=== PATIENT | female | born 1965 | race Caucasian/White ===

== ENCOUNTER 2017-08-10 08:21 | Emergency (ER) | payer BC ==
[~2017-08-10] VITALS: Ht 167.6 cm; Wt 80.7 kg
[~2017-08-10 08:21] MED LIST: TOPROL XL25 MG PO
--- NOTE | 2017-08-10 09:15 | Diagnostic Imaging Report ---
PROCEDURE:X-RAY RIGHT ANKLE, COMPLETE INDICATION:Status post fall COMPARISON:None. FINDINGS:The ankle mortise is intact. No fracture or dislocation. Minimal soft tissue swelling adjacent to the lateral malleolus. CONCLUSION:No acute bony abnormality. Teja Vela D.O. Dictated by: Teja Vela D.O. on 08/10/2017 at 9:16 Electronically approved by: Teja Vela D.O. on 08/10/2017 at 9:16
== END 2017-08-10 09:42 | disposition home or self-care (01) ==
LOC: ER 08:21
CPT/HCPCS: 99283

== ENCOUNTER 2018-03-07 16:13 | Inpatient (IN) | payer BC ==
[~2018-03-07] VITALS: Ht 165.1 cm; Wt 83.1 kg
--- OUTSIDE RECORDS SUMMARY | 2018-03-07 16:15 | XMS REPORT ---
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 Allergies, Adverse Reactions, Alerts This patient has no known allergies or adverse reactions. Medications This patient has no known medications. Results Test Description Test Time Test Comments Text Results Atomic Results Result Comments ANKLE 3 + VIEWS RIGHT [place] [address] Patient Name: SAUNDRA GIL MR #: [id number] : 1965 Age/Sex: 52/F Req #: [id number] [facility] Physician: Ordered by: SAIDA ESCOBEDO MD Report #: [id number] Location: ER Room/Bed: Procedure: [id number] DX/ANKLE 3 + VIEWS RIGHT Exam Date: 08/10/17 Exam Time: 0845 REPORT STATUS: Signed PROCEDURE: X-RAY RIGHT ANKLE, COMPLETE INDICATION: Status post fall COMPARISON: None. FINDINGS: The ankle mortise is intact. No fracture or dislocation. Minimal soft tissue swelling adjacent to the lateral malleolus. CONCLUSION: No acute bony abnormality. Frantz Nielsen D.O. Dictated by: Frantz Nielsen D.O. on 08/10/2017 at 9:16 Electronically approved by: Frantz Nielsen D.O. on 08/10/2017 at 9:16 Dictated By: FRANTZ NIELSEN DO 6 Transcribed By: DEMETRICE on 08/10/17916 COPY TO: SAIDA ESCOBEDO MD
[2018-03-07] MEDS ORDERED: ONDANSETRON HCL INJ 2 MG/ML VIAL IV STA (16:22)
[2018-03-07] MEDS ORDERED: KETOROLAC TROMETHAMINE 30 MG/ML VIAL IV STA (16:22)
--- NOTE | 2018-03-07 19:08 | Diagnostic Imaging Report ---
EXAM: CT Abdomen and Pelvis WITHOUT and WITH contrast INDICATION: Left lower quadrant pain, history of diverticulosis, renal stones, hematuria COMPARISON: CT abdomen and pelvis 11/07/2016 TECHNIQUE: Abdomen and pelvis were scanned utilizing a multidetector helical scanner from the lung base to the pubic symphysis before and after administration of IV contrast. Coronal and sagittal reformations were obtained. Routine protocol was performed. IV CONTRAST: None. ORAL CONTRAST: Water RADIATION DOSE: Total DLP: 1439 mGy*cm Estimated effective dose: (DLP x 0.015 x size factor) mSv COMPLICATIONS: None FINDINGS: LINES and TUBES: None. LOWER THORAX: Unremarkable HEPATOBILIARY: No focal hepatic lesions. No biliary ductal dilation. GALLBLADDER: No radio-opaque stones or sludge. No wall thickening. SPLEEN: No splenomegaly. PANCREAS: No focal masses or ductal dilatation. ADRENALS: No adrenal nodules KIDNEYS/URETERS: No hydronephrosis. No cystic or solid mass lesions. 3 mm nonobstructing calcified stone in the inferior pole of the right kidney on series 2, image 43. GI TRACT: No abnormal distention, wall thickening, or evidence of bowel obstruction. Diffuse diverticulosis throughout the sigmoid colon with associated extensive fat stranding and mild fluid collection within the distal sigmoid in the pelvis on series 2, image 72. No free air. Scattered diverticulosis throughout the remaining colon. Appendix is normal. PELVIC ORGANS/BLADDER: Unremarkable. LYMPH NODES: No lymphadenopathy. VESSELS: Unremarkable. PERITONEUM / RETROPERITONEUM: No free air or fluid. BONES: Unremarkable. SOFT TISSUES: Unremarkable. IMPRESSION: 1. Acute severe diverticulitis of the sigmoid colon. No abscess or free air in the pelvis. Recommend follow-up after treatment is completed. 2. Nonobstructing right nephrolithiasis. Signed by: Dr. Clarissa Abel M.D. on 03/07/2018 7:04 PM
[2018-03-07] MEDS ORDERED: IOPAMIDOL 370 MG/ML 50ML INFUS..BTL INJ ONE (19:45)
[2018-03-07 20:22] VITALS: BP 130/64
[2018-03-07] MEDS: SODIUM CHLORIDE 0.9% 1000ML 1,000 ML IV SCH (20:45)
[2018-03-07] MEDS: METRONIDAZOLE 500MG/NS 100ML 100 ML IV SCH (20:46)
[2018-03-07 21:00] VITALS: BP 130/64
[2018-03-07] MEDS: LEVOFLOXACIN 500MG/D5W 100ML 100 ML IV SCH (21:30)
[2018-03-08] VITALS (9 sets, daily range): BP systolic 97–130; BP diastolic 52–78
[2018-03-08 06:03] LABS: BASOPHILS % 0.3 % (0.0-1.0); EOSINOPHILS # (AUTO) 0.1 (0.0-0.4); HEMOGLOBIN 12.5 g/dL (12.0-16.0); LYMPHOCYTES # (AUTO) 1.4 (1.0-3.2); LYMPHOCYTES % 12.7 % (18.0-39.1); MEAN CORPUSCULAR HEMOGLOBIN 29.6 pg (28-32); MEAN CORPUSCULAR HGB CONC 32.9 g/dL (31-35); MONOCYTES # (AUTO) 1.1 (0.2-0.8); MONOCYTES % 9.4 % (4.4-11.3); NEUTROPHILS # (AUTO) 8.6 (2.1-6.9); NEUTROPHILS % 76.2 % (38.7-80.0); PLATELET COUNT 245 x10e3/uL (140-360); RED BLOOD COUNT 4.22 x10e6/uL (3.6-5.1); RED CELL DISTRIBUTION WIDTH 13.4 % (11.7-14.4)
[2018-03-08] MEDS ORDERED: ONDANSETRON HCL INJ 2 MG/ML VIAL IV PRN (06:15)
[2018-03-08] MEDS ORDERED: KETOROLAC TROMETHAMINE 30 MG/ML VIAL IV PRN (06:15)
[2018-03-08] MEDS ORDERED: KETOROLAC TROMETHAMINE 30 MG/ML VIAL IM PRN (06:15)
[2018-03-08 06:32] LABS: ALANINE AMINOTRANSFERASE 18 IU/L (0-55); ALKALINE PHOSPHATASE 48 IU/L (40-150); ANION GAP 11.7 mmol/L (8-16); BLOOD UREA NITROGEN 8 mg/dL (7-26); BUN/CREATININE RATIO 11 (6-25); CALCIUM 8.1 mg/dL (8.4-10.2); CARBON DIOXIDE 20 mmol/L (22-29); CHLORIDE 111 mmol/L (98-107); CREATININE, SERUM 0.76 mg/dL (0.57-1.11); EST GLOMERULAR FILTRATION RATE > 60 ML/MIN (60-); GLUCOSE 99 mg/dL (74-118); POTASSIUM 3.7 mmol/L (3.5-5.1); SODIUM 139 mmol/L (136-145)
[2018-03-08] MEDS: SODIUM CHLORIDE 0.9% 1000ML 1,000 ML IV SCH ×3 (06:58→19:00)
[2018-03-08] MEDS: METRONIDAZOLE 500MG/NS 100ML 100 ML IV SCH ×2 (09:00→20:14)
[2018-03-08] MEDS: LEVOFLOXACIN 500MG/D5W 100ML 100 ML IV SCH (21:26)
[2018-03-09] MEDS ORDERED: METRONIDAZOLE 500MG/NS 100ML 100 ML IV SCH
[2018-03-09] MEDS: METRONIDAZOLE 500MG/NS 100ML 100 ML IV SCH ×4 (02:12→20:45)
[2018-03-09 05:30] VITALS: BP 131/66
[2018-03-09 08:26] VITALS: BP 133/68
[2018-03-09 09:49] LABS: BASOPHILS % 0.3 % (0.0-1.0); EOSINOPHILS # (AUTO) 0.1 (0.0-0.4); EOSINOPHILS % 1.5 % (0.0-6.0); HEMATOCRIT 35.8 % (34.2-44.1); HEMOGLOBIN 11.9 g/dL (12.0-16.0); LYMPHOCYTES # (AUTO) 1.2 (1.0-3.2); LYMPHOCYTES % 18.2 % (18.0-39.1); MEAN CORPUSCULAR HGB CONC 33.2 g/dL (31-35); MEAN CORPUSCULAR VOLUME 90.2 fL (81-99); MONOCYTES # (AUTO) 0.4 (0.2-0.8); MONOCYTES % 6.1 % (4.4-11.3); NEUTROPHILS % 73.6 % (38.7-80.0); PLATELET COUNT 262 x10e3/uL (140-360); RED BLOOD COUNT 3.97 x10e6/uL (3.6-5.1)
[2018-03-09 10:13] LABS: ANION GAP 11.6 mmol/L (8-16); BLOOD UREA NITROGEN 8 mg/dL (7-26); BUN/CREATININE RATIO 11 (6-25); CALCIUM 8.1 mg/dL (8.4-10.2); CARBON DIOXIDE 19 mmol/L (22-29); CHLORIDE 109 mmol/L (98-107); CREATININE, SERUM 0.73 mg/dL (0.57-1.11); EST GLOMERULAR FILTRATION RATE > 60 ML/MIN (60-); GLUCOSE 153 mg/dL (74-118); POTASSIUM 3.6 mmol/L (3.5-5.1); SODIUM 136 mmol/L (136-145)
[2018-03-09 11:51] VITALS: BP 116/67
[2018-03-09 15:48] VITALS: BP 128/66
[2018-03-09 20:00] VITALS: BP 123/68
[2018-03-09] MEDS: LEVOFLOXACIN 500MG/D5W 100ML 100 ML IV SCH (23:45)
[2018-03-10] VITALS: BP 146/78
[2018-03-10] MEDS: METRONIDAZOLE 500MG/NS 100ML 100 ML IV SCH ×4 (02:45→20:14)
[2018-03-10 05:45] VITALS: BP 111/56
[2018-03-10 08:22] VITALS: BP 140/74
[2018-03-10 12:24] VITALS: BP 125/74
[2018-03-10 16:17] VITALS: BP 114/59
[2018-03-10 21:00] VITALS: BP 135/71
[2018-03-10] MEDS: LEVOFLOXACIN 500MG/D5W 100ML 100 ML IV SCH (21:16)
[2018-03-11 01:08] VITALS: BP 137/96
[2018-03-11] MEDS: METRONIDAZOLE 500MG/NS 100ML 100 ML IV SCH ×2 (02:07→08:24)
[2018-03-11 06:33] VITALS: BP 113/60
[2018-03-11 07:30] VITALS: BP 124/86
[2018-03-11] MEDS ORDERED: PANTOPRAZOLE SOD 40 MG TABEC PO SCH (07:30)
[2018-03-11 08:00] VITALS: BP 124/86
== END 2018-03-11 08:37 | disposition home or self-care (01) | DRG 392 ==
LOC: FSED 16:13 → OBSVTOIN 19:10 → INTOOBSV 19:10 → ERHOLD 19:10 → MED/SURG2 20:24
PROVIDERS: ADMIT Internal Medicine; ATTEND Internal Medicine
DX: K57.32 Diverticulitis of large intestine without perforation or abscess without bleeding (principal); D64.9 Anemia, unspecified
CPT/HCPCS: 36415; 74170; 80048; 80053; 81003; 81025; 83735; 85025; 87493; 99284; J1885; J1956; J2405; J7030; Q9967

== ENCOUNTER 2018-07-16 20:55 | Observation (INO) | payer BC ==
[~2018-07-16] VITALS: Ht 167.6 cm; Wt 81.6 kg
[2018-07-16] MEDS ORDERED: HYDRALAZINE HCL 20 MG/ML VIAL IV ONE ×2 (21:30→22:30)
[2018-07-16] MEDS ORDERED: ASPIRIN 325 MG TAB PO ONE (21:30)
--- NOTE | 2018-07-16 22:00 | Diagnostic Imaging Report ---
EXAMINATION: CXR 2 VIEW - HOPD INDICATION: Chest pain COMPARISON: None FINDINGS: PA and lateral views TUBES and LINES: None. LUNGS: Lungs are well inflated. There is no evidence of pneumonia or pulmonary edema. PLEURA: No pleural effusion or pneumothorax. HEART AND MEDIASTINUM: The cardiomediastinal silhouette is unremarkable.. BONES AND SOFT TISSUES: No focal osseous lesions. Soft tissues are unremarkable. UPPER ABDOMEN: No free air under the diaphragm. IMPRESSION: No acute thoracic abnormality. Signed by: Dr. Ana Tarango MD on 07/16/2018 9:57 PM
--- NOTE | 2018-07-16 22:45 | NUR ---
PATIENT CRYING STATING SHE FEELS SOB, LIKE SHES HAVING TO TAKE DEEPER BREATHS, DENIES WANTING TO BE PLACED ON OXYGEN, BP READING IS NOT 211/97
--- NOTE | 2018-07-16 22:56 | NUR ---
PER PATIENT AFTER FIRST DOSE OF HYDRALIZE SHE DID HAVE AN EPISODE OF PAIN THAT RADIATED TO BACK FROM FRONT OF CHEST, AFTER ADDITIONAL DOSE OF HYDRALIZNE GIVEN IT MADE SYMPTOMS WORSE WHICH INCLUDED SHORTNESS OF BREATH THAT REQUIRED HER TO TAKE DEEPER BREATHS, NOW PT IS CALM AND BP HAS DECREASED AT INITIAL START OF POSSIBLE ADVERSE SYMPTOMS BP WAS 211/97 HR 128, CURRENTLY BP 186/68 HR 113, WILL CONT TO MONITOR PT AND AWAITING APPROVAL FOR TRANSFER TO [facility]
[2018-07-16] MEDS ORDERED: LABETALOL HCL 5 MG/ML 20ML VIAL IV PRN (23:15)
[2018-07-17] VITALS (8 sets, daily range): BP systolic 110–176; BP diastolic 58–107
[2018-07-17] MEDS ORDERED: CLONIDINE HCL 0.1 MG TAB PO PRN (02:45)
--- NOTE | 2018-07-17 04:04 | History and Physical ---
REASON FOR ADMISSION: 1. Chest pain, rule out VA. 2. Hypertensive urgency. HISTORY OF PRESENT ILLNESS: The patient is a 53-year-old lady, who presented with chest pain, midsternal, that came on the time that she started having hypertensive urgency with systolic blood pressure near 200s and diastolics 110s where she was given some medication leaving blood pressure now where she is currently at around 160 with no chest pain at this time, so she was admitted for further evaluation. The patient states that she has had a history of hypertension in the past, but it has mostly been diet-controlled and doing well recently until yesterday prior to admission. PAST MEDICAL HISTORY: Hypertension, but diet-controlled. MEDICATIONS: See MAY. ALLERGIES: NONE. SOCIAL HISTORY: Nondrinker and nonsmoker. FAMILY HISTORY: Hypertension. PHYSICAL EXAMINATION: VITAL SIGNS: Temperature 98.6, pulse 74, blood pressure 156/84, respiratory rate 14, and sats 97%. GENERAL: She is in no apparent distress. NECK: Supple. No lymphadenopathy. No JVD. CARDIOVASCULAR: Regular rate and rhythm. LUNGS: Clear to auscultation bilaterally. ABDOMEN: Good bowel sounds. Soft, nontender. EXTREMITIES: No clubbing, cyanosis. NEUROLOGIC: Nonfocal. ASSESSMENT/PLAN: 1. Chest pain, rule out myocardial infarction. Consult with Cardiology, Dr. Nicole. 2. Hypertension. We will continue with current p.r.n. medications at this time, since she does not really want to be on put on any maintenance medicine if possible. Please see hospital chart for full details. MD DANG Bateman/VIJAY /[id number]
[2018-07-17 08:40] LABS: CREATINE KINASE MB 1.4 ng/mL (0-5.0)
[2018-07-17] MEDS ORDERED: ASPIRIN 325 MG TAB EC PO SCH (09:00)
[2018-07-17 09:11] LABS: CHOL/HDL RATIO 3.2 (3.0-3.6)
--- NOTE | 2018-07-17 14:20 | Consultation ---
DATE OF CONSULTATION: 07/17/2018 Cardiology Consultation CONSULTING PHYSICIAN: Tomy Nicole MD, Interventional Cardiology. REASON FOR CONSULTATION: Chest pain. 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 She has a family history significant for coronary artery disease and presents for episodes of chest discomfort occurring while at work, described as left sided, pressure like, lasting less than 5 minutes at a time, occurring at rest, but also after walking to restroom, particularly more pronounced when her blood pressure is in the 140s to 160s and increased after receiving hydralazine and heart rate resulting increase into the 120s per her description. Previous evaluations in the past have revealed known right bundle-branch block, symptomatic improvement with p.r.n. clonidine in the past, and workup has included SPECT stress test at that time reassuring. In telemetry, she remains in sinus rhythm with sinus tachycardia, no arrhythmias documented so far and cardiac biomarkers have again ruled her out for AMI with serial enzymes. She feels overall somewhat better today compared to yesterday. Echocardiogram has been ordered and is pending. She has noted occasional associated palpitations, however, this do not seem to present along with every episode of chest pain that she has reported. Chest discomfort is unaffected by changes in position from lying to sitting as well as with meals and is not reliably occurring with exertion. Sometimes she does note chest discomfort worsens with deep inspiration or cough. REVIEW OF SYSTEMS: A 12-system review is negative except for as noted above. PAST MEDICAL HISTORY: Episodic hypertensive episodes for which she has not continued or received treatment on a regular basis. SOCIAL HISTORY: Occasional alcohol use. No smoking. No drugs. FAMILY HISTORY: Significant for CAD in various family members including parents. PHYSICAL EXAMINATION: VITAL SIGNS: Temperature 97.9, heart rate 86, respiratory rate 16, blood pressure 133/96, and O2 saturation 98% on room air. GENERAL: In no acute distress, alert. NECK: No JVD. No carotid bruit. CHEST: Clear to auscultation. CARDIOVASCULAR: Regular rate and rhythm. Normal S1 and S2. No S3, no S4. No murmurs, no rubs. ABDOMEN: Soft, nontender, nondistended. EXTREMITIES: No cyanosis, clubbing, or edema. Warm distal extremities. CARDIOVASCULAR MEDICATIONS: Reviewed. Aspirin 325 mg daily, status post p.r.n. labetalol 10 mg q.4 hours as needed, clonidine 0.1 mg q.6 hours p.r.n. as needed, initiating metoprolol succinate 25 mg at bedtime and hydralazine 10 mg IV x1. LABORATORY DATA: Cardiac enzymes negative x2. Triglycerides 147, total cholesterol 170, LDL 88, HDL 53. On tele, in sinus rhythm. ASSESSMENT: 1. A 53-year-old woman presenting with atypical chest pain, recurrent, ongoing now for several years intermittently. 2. Right bundle-branch block. 3. Family history significant for coronary artery disease. 4. Palpitations. 5. Episodic hypertension. RECOMMENDATIONS: 1. Initiated metoprolol extended release 25 mg at bedtime as blood pressure allows. 2. Aspirin 81 mg daily. 3. Echocardiogram pending. Suggest outpatient followup for telemetry and consideration of PET absolute myocardial perfusion stress test in addition to further risk stratification versus consideration of alternative definitive strategies to evaluate chest discomfort, which has been discussed with Brittany as well as with family members. MD JEANETH Bhatti/VIJAY /[id number]
[2018-07-17 16:34] LABS: CREATINE KINASE 83 IU/L (29-168)
[2018-07-17] MEDS ORDERED: METOPROLOL SUCC25 MG PO (17:09)
[2018-07-17] MEDS ORDERED: METOPROLOL SUCCINATE 25 MG TAB XL PO SCH (21:00)
--- NOTE | 2018-07-18 05:17 | Discharge Summary ---
DISCHARGE DIAGNOSES: 1. Chest pain, rule out myocardial infarction. 2. Hypertensive urgency. HISTORY OF PRESENT ILLNESS AND HOSPITAL COURSE: See hospital chart for full details. The patient had acute onset of hypertensive urgency that caused her to have some associated chest pain, so she is admitted for further evaluation and treatment. She did rule out for myocardial infarction by serial enzymes and EKGs. She was seen by Cardiology, who has seen her in the past. We felt like the patient could be discharged home on p.o. 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 The patient was then discharged home with a new blood pressure medicine. Please see hospital chart for full details. MD DANG Bateman/VIJAY /[id number]
== END 2018-07-17 17:33 | disposition home or self-care (01) ==
LOC: FSED 20:55 → ERHOLD 23:18 → MED/SURG2 07-17 01:11
PROVIDERS: ADMIT Internal Medicine; ATTEND Internal Medicine
DX: I16.0 Hypertensive urgency (principal); R07.2 Precordial pain
CPT/HCPCS: 36415; 71046; 80053; 80061; 82550; 82553; 84484; 85025; 85379; 93005; 93306; 99284; G0378 ×2; J3490

== ENCOUNTER → 2018-08-12 | Day surgery (SDC) | payer BC ==
[~2018-08-12] MED LIST changes: +FENTANYL CITRATE/PF 100MCG/2 ML INJ ONE; +HYOSCYAMINE SULFATE 0.5 MG/ML INJ ONE; +METOPROLOL SUCC25 MG PO; +MIDAZOLAM HCL 2 MG/2 ML VIAL ONE; +PROPOFOL IV EMULSION 10 MG/ML 50 ML VIAL ONE
[2018-08-12 10:55] VITALS: BP 114/87
--- NOTE | 2018-08-12 17:16 | Operative Report ---
DATE OF PROCEDURE: 08/12/2018 SURGEON: Marvel Davis MD PROCEDURE: Esophagogastroduodenoscopy with biopsies and colonoscopy with polypectomy. INDICATIONS FOR EGD: Heartburn, bloating. INDICATIONS FOR COLONOSCOPY: Colorectal cancer screening, history of diverticulitis. MEDICATIONS: The patient was done under MAC, please see anesthesiologist's note. PROCEDURE IN DETAIL: With the patient in left lateral decubitus position, a flexible fiberoptic Olympus gastroscope was introduced into the esophagus under direct visualization without any difficulty. There was some patchy erythema noted in distal esophagus. An approximately 5 mm ulcer was noted in the distal esophagus without active bleeding or stigmata of recent hemorrhage. The scope was then advanced with ease into the stomach and mucosa overlying the antrum and the body revealed some patchy erythema and moderate edema and biopsies were obtained and sent to stain for H pylori. Multiple hyperplastic-appearing polyps were noted in the body and the fundus and some were partially excised with the cold biopsy forceps. The pylorus was of normal contour and shape, it was intubated with ease and the scope was advanced all the way to the second portion of the duodenum. The scope was then withdrawn slowly and biopsies were obtained from the proximal second portion and the duodenal bulb to rule out sprue. The scope was then withdrawn back into the stomach and retroflexed and mucosa overlying the fundus and the cardia appeared to be within normal limits other than for some polyps in the fundus. The scope was then straightened out, it was subsequently withdrawn. The patient tolerated procedure well. IMPRESSION: 1. Ulcer in distal esophagus. 2. Gastritis, biopsied, biopsies sent to stain for H pylori. 3. Gastric polyps, multiple, several partially excised with the cold biopsy forceps. 4. Rule out sprue. PLAN: Follow up histology. Initiate Protonix 40 mg one p.o. q.a.m. a.c. PROCEDURE IN DETAIL: The patient was then turned around and after adequate lubrication of the anal canal, flexible fiberoptic Olympus colonoscope was inserted into the rectum with ease and advanced all the way to the cecum. It was then withdrawn slowly and mucosa overlying the cecum appeared to be within normal limits. One polyp was hot biopsied from the ascending colon. Diverticular disease was scattered in the colon, but it was more prominent in the left colon, primarily in the sigmoid colon. The rectum grossly appeared to be within normal limits. The scope was then retroflexed into the distal rectum and moderate-sized internal hemorrhoids were noted, none of which was actively bleeding. The scope was then straightened out, it was subsequently withdrawn. The patient tolerated procedure well. IMPRESSION: 1. Ascending colon polyp, hot biopsied. 2. Diverticulosis. 3. Internal hemorrhoids, none actively bleeding. PLAN: Follow up histology. Initiate high-fiber, low-fat diet. Initiate high-fiber supplement. The patient might benefit from a followup colonoscopy in 5 years. Marvel Davis MD [facility]/MODL /[id number] cc: Thuan Flynn MD
== END | disposition home or self-care (01) ==
LOC: OR 06:55
PROVIDERS: ATTEND Internal Medicine Gastroenterology
DX: Z12.11 Encounter for screening for malignant neoplasm of colon (principal); D12.2 Benign neoplasm of ascending colon; R14.0 Abdominal distension (gaseous); K22.10 Ulcer of esophagus without bleeding; K29.70 Gastritis, unspecified, without bleeding; K31.7 Polyp of stomach and duodenum; K63.5 Polyp of colon; K64.8 Other hemorrhoids; K57.30 Diverticulosis of large intestine without perforation or abscess without bleeding; K21.9 Gastro-esophageal reflux disease without esophagitis; R12 Heartburn; R10.32 Left lower quadrant pain; K62.5 Hemorrhage of anus and rectum; I10 Essential (primary) hypertension; Z68.30 Body mass index [BMI] 30.0-30.9, adult; Z88.8 Allergy status to other drugs, medicaments and biological substances
CPT/HCPCS: 43239; 45384; 81025; J1980; J2250; J2704; 45378

== ENCOUNTER → 2018-09-16 | Outpatient (CLI) | payer BC ==
[~2018-09-16] MED LIST changes: -FENTANYL CITRATE/PF 100MCG/2 ML INJ ONE; -HYOSCYAMINE SULFATE 0.5 MG/ML INJ ONE; -MIDAZOLAM HCL 2 MG/2 ML VIAL ONE; -PROPOFOL IV EMULSION 10 MG/ML 50 ML VIAL ONE
--- NOTE | 2018-09-16 10:27 | Diagnostic Imaging Report ---
EXAM: CHEST 2 VIEWS, PA and lateral DATE: 09/16/2018 Time stamp on exam: 9:56 AM INDICATION: Wheezing COMPARISON: 07/16/2018 FINDINGS: LINES/TUBES: None LUNGS: No consolidations or edema. PLEURA: No effusions or pneumothorax. HEART AND MEDIASTINUM: Normal size and contour. BONES AND SOFT TISSUES: No acute findings. IMPRESSION: No acute thoracic abnormality. Signed by: Dr. Teja Vela DO on 09/16/2018 10:23 AM
== END ==
LOC: RAD 09:49
PROVIDERS: ATTEND Internal Medicine Cardiovascular Disease
DX: R07.89 Other chest pain (principal); R06.02 Shortness of breath; R06.2 Wheezing; R09.89 Other specified symptoms and signs involving the circulatory and respiratory systems
CPT/HCPCS: 71046

== ENCOUNTER → 2018-09-20 | Outpatient (CLI) | payer BC | LOC: MAMMO 09:49 | PROVIDERS: ATTEND Family Medicine | DX: Z12.31 Encounter for screening mammogram for malignant neoplasm of breast (principal) | CPT/HCPCS: 77067 ==

== ENCOUNTER 2018-09-22 10:47 | Outpatient (RCR) | payer BC | END 2018-09-25 | LOC: PT 10:47 | PROVIDERS: ATTEND Orthopaedic Surgery | DX: M70.62 Trochanteric bursitis, left hip (principal); M25.552 Pain in left hip; M62.81 Muscle weakness (generalized) ==

== ENCOUNTER 2018-10-21 07:00 | Outpatient (RCR) | payer BC | END 2018-10-26 | LOC: PT 07:00 | PROVIDERS: ATTEND Orthopaedic Surgery | DX: M70.62 Trochanteric bursitis, left hip (principal); M25.552 Pain in left hip; M62.81 Muscle weakness (generalized); S76.212A Strain of adductor muscle, fascia and tendon of left thigh, initial encounter ==

== ENCOUNTER → 2018-12-13 | Outpatient (CLI) | payer BC ==
--- NOTE | 2018-12-13 09:53 | Diagnostic Imaging Report ---
Exam: Bone mineral density study. History: 53-year-old female. Comparison: None Discussion: Evaluation of the left hip and lumbar spine was performed utilizing DEXA Hologic bone densitometer. The study is technically adequate. The patient's fracture risk is compared to an age-matched control. Left femoral neck bone mineral density: 0.941 g/cm2, T-score is 0.8, Z-score is 1.7. No previous comparison. Lumbar spine total bone mineral density: 1.301 gm/cm2, T-score is 2.3, Z-score is 3.1. No previous comparison. Impression: Bone mineralization by WHO Classification using T score is normal, fracture risk is not increased. <T score: NL = -1 or higher Osteopenia = -1 to -2.5 Osteoporosis = -2.5 or lower Z score: < - 1.5 concerning for path> Recommendations: Medical evaluation for secondary causes of low bone mineral density may be appropriate. Correlate clinically for the necessity and timing of the next bone mineral density study. National Osteoporosis Foundation recommendations: Initiate therapy to reduce fracture risk in postmenopausal women with -BMD t-scores below -2 by central DXA with no risk factors -BMD t-scores below -1.5 by central DXA with one or more risk factors (first deg relative with hip fracture, prior personal fracture, low body weight, smoking) -A prior vertebral or hip fracture AACE (Clinical Endocrinology) recommends treating the following: Postmenopausal women who have osteoporosis as diagnosed by fragility fractures or t scores -2.5 or below Postmenopausal women who have risk factors (including fh of hip fracture, low body weight, smoking, risk of falling, high bone turnover, advancing age) and borderline low BMD T scores of -1.5 or below Adequate intake of calcium (at least 1200mg/day) and vitamin D (400-800 IU/day). Regular weight bearing and muscle - strengthening exercises Avoid smoking and excessive alcohol Signed by: Gerald Kaba on 12/13/2018 9:50 AM
== END ==
LOC: DX 08:53
PROVIDERS: ATTEND Family Medicine
DX: Z13.820 Encounter for screening for osteoporosis (principal)
CPT/HCPCS: 77080

== ENCOUNTER 2019-07-11 22:15 | Emergency (ER) | payer BC ==
[~2019-07-11] VITALS: Ht 167.6 cm; Wt 81.6 kg
--- NOTE | 2019-07-11 23:11 | Diagnostic Imaging Report ---
X-ray left shoulder 2 views HISTORY: Pain. COMPARISON: None available. FINDINGS: Bones: No acute displaced fracture. Osseous alignment is within normal limits. Joints: The joint spaces are well-maintained. Soft tissues: The soft tissues appear unremarkable. IMPRESSION: No acute radiographic abnormality. Signed by: Rodrigo Richard DO on 07/11/2019 11:08 PM
== END 2019-07-11 23:17 | disposition home or self-care (01) ==
LOC: ER 22:15
DX: M75.101 Unspecified rotator cuff tear or rupture of right shoulder, not specified as traumatic (principal); X50.3XXA Overexertion from repetitive movements, initial encounter; Y93.89 Activity, other specified; Y92.008 Other place in unspecified non-institutional (private) residence as the place of occurrence of the external cause; K21.9 Gastro-esophageal reflux disease without esophagitis; K92.9 Disease of digestive system, unspecified
CPT/HCPCS: 99283

== ENCOUNTER 2019-07-26 08:56 | Outpatient (RCR) | payer BC | END 2019-07-27 | LOC: PT 08:56 | PROVIDERS: ATTEND Orthopaedic Surgery | DX: M75.42 Impingement syndrome of left shoulder (principal); M25.512 Pain in left shoulder; M25.612 Stiffness of left shoulder, not elsewhere classified; M62.81 Muscle weakness (generalized) ==

== ENCOUNTER 2019-08-22 07:00 | Outpatient (RCR) | payer BC | END 2019-08-27 | LOC: PT 07:00 | PROVIDERS: ATTEND Orthopaedic Surgery | DX: M75.42 Impingement syndrome of left shoulder (principal); M62.81 Muscle weakness (generalized); M25.512 Pain in left shoulder; M25.612 Stiffness of left shoulder, not elsewhere classified | CPT/HCPCS: 97139 ==

== ENCOUNTER 2019-12-10 03:42 | Inpatient (IN) | payer BC ==
[~2019-12-10] VITALS: Ht 167.6 cm; Wt 84.8 kg
[2019-12-10] VITALS (8 sets, daily range): BP systolic 125–138; BP diastolic 74–86
[2019-12-10] MEDS ORDERED: SODIUM CHLORIDE 0.9% 1000ML 1,000 ML IV STA ×2 (03:47→05:08)
--- NOTE | 2019-12-10 03:48 | Emergency Department Note ---
History of Present Illnes History of Present Illness Chief Complaint: COVID PUI History of Present Illness This is a 54 year old female presents to the ED for several days of malaise, fevers, and myalgias . Historian: Patient Onset (how long ago): day(s) Radiation: Reports non-radiation Severity: moderate Onset quality: gradual Duration (how long): hour(s) Timing of current episode: constant Progression: worsening Chronicity: new Context: Denies recent illness, Denies recent surgery, Denies recent immobilization, Denies recent travel, Denies trauma/injury, Denies new medications, Denies hx of DVT/PE, Denies non-compliance w/ medications, Denies other Relieving factors: none Exacerbating factors: none Associated symptoms: Reports chest pain, Reports fever/chills, Reports nausea/ vomiting Treatments prior to arrival: none Past Medical/Family History Physician Review I have reviewed the patient's past medical and family history. Any updates have been documented here. Past Medical History Recent Fever: Yes Clinical Suspicion of Infectio: Yes New/Unexplained Change in Ment: No Past Medical History: Hypertension, Kidney Stones, GERD Other Medical History: ANGINA DIVERTICULOSIS Past Surgical History: Tubal Ligation, Other Surgery: C SECT X 1 TUMMY TUCK BREAST REDUCTION Social History Smoking Cessation: Never Smoker Alcohol Use: None Any Illegal Drug Use: No Other Last Tetanus: UTD Review of Systems Review of Systems Constitutional: Reports fever, Reports malaise, Reports weakness EENTM: Reports no symptoms Cardiovascular: Reports no symptoms Respiratory: Reports cough Gastrointestinal: Reports no symptoms Genitourinary: Reports no symptoms Musculoskeletal: Reports no symptoms Integumentary: Reports no symptoms Neurological: Reports no symptoms Psychological: Reports no symptoms Endocrine: Reports no symptoms Hematological/Lymphatic: Reports no symptoms Physical Exam Related Data Allergies: Coded Allergies: hydralazine (Verified Allergy, Unknown, 08/12/18) Physical Exam CONSTITUTIONAL Constitutional: Present ill appearing HENT HENT: Present normocephalic, Present atraumatic, Present oropharynx clear/moist, Present nose normal HENT L/R: Present left ext ear normal, Present right ext ear normal EYES Eyes: Reports PERRL, Reports conjunctivae normal NECK Neck: Present ROM normal PULMONARY Pulmonary: Present effort normal, Present breath sounds normal CARDIOVASCULAR Cardiovascular: Present regular rhythm, Present heart sounds normal, Present capillary refill normal, Present normal rate GASTROINTESTINAL Abdominal: Present soft, Present nontender, Present bowel sounds normal GENITOURINARY Genitourinary: Present exam deferred SKIN Skin: Present warm, Present dry MUSCULOSKELETAL Musculoskeletal: Present ROM normal NEUROLOGICAL Neurological: Present alert, Present oriented x 3, Present no gross motor or sensory deficits PSYCHOLOGICAL Psychological: Present mood/affect normal, Present judgement normal Results Laboratory Lab results reviewed: Yes Imaging Imaging results reviewed: Yes Impressions [place] [address] Patient Name: SAUNDRA GIL MR #: [id number] : 1965 Age/Sex: 54/F Req #: [id number] Adm Physician: Ordered by: MINOR SANDY DO Report #: [id number] Location: ER Room/Bed: Procedure: [id number] DX/CHEST SINGLE (PORTABLE) Exam Date: Exam Time: REPORT STATUS: Signed EXAMINATION: CHEST SINGLE (PORTABLE) INDICATION: Cough COMPARISON: Chest x-ray 03/24/2019 FINDINGS: TUBES and LINES: None. LUNGS: Normal lung volumes. Lungs are clear. No consolidations. PLEURA: No pleural effusion or pneumothorax. HEART AND MEDIASTINUM: The cardiomediastinal silhouette is unremarkable. BONES AND SOFT TISSUES: No acute osseous lesion. Soft tissues are unremarkable. UPPER ABDOMEN: No free air under the diaphragm. IMPRESSION: No acute thoracic radiographic abnormality. Signed by: Rodrigo Richard DO on 12/10/2019 5:00 AM Dictated By: RODRIGO RICHARD DO 9 Transcribed By: HERMINIA on 12/10/19499 COPY TO: MINOR SANDY DO~ Procedures 12 Lead ECG Interpretation ECG Interpretation : ECG: ECG 1 Human Intelligence: Interpreted by ED physician Date: Dec 10, 2019 Time: 03:57 Prior ECG tracings: reviewed Rhythm: sinus rhythm Rate: normal BPM: 92 QRS axis: normal ST segments normal: Yes T waves flattening: II, V1, V2, V3, V5, V6 Clinical Impression: non-specific ECG Assessment & Plan Medical Decision Making MDM Diff Dx : influenza, COVID-19 URI, PNA, sepsis Assessment & Plan Final Impression: (1) Upper respiratory tract infection due to COVID-19 virus Depart Disposition: ADMITTED Home Meds Reported Medications Metoprolol Succinate (METOPROLOL SUCCINATE) 25 Mg Tab.er.24h, 50 MG PO BID, #90 07/17/18 MINOR SNADY DO Dec 10, 2019 03:48
[2019-12-10] MEDS ORDERED: ONDANSETRON HCL INJ 2MG/ML 2ML 2 MG/ML VIAL IV STA ×2 (03:52→05:08)
--- OUTSIDE RECORDS SUMMARY | 2019-12-10 03:57 | XMS REPORT | Continuity of Care Document ---
Author Author [facility] t Organization [facility] Address [address] [place] [address] Phone Unavailable Care Team Providers Care Plaster Foreman Name Role Phone Alisha BOWIE Attphys Unavailable WYLIETORI Attphys Unavailable FUNG JANNA, Venecia CINTRON Attphys Unavailable MANEEVESE, V RYAN Attphys Unavailable JEANETH, C KONSTANTIN Attphys Unavailable GREGG, P SAIDA Attphys Unavailable Problems This patient has no known problems. Allergies, Adverse Reactions, Alerts This patient has no known allergies or adverse reactions. Medications This patient has no known medications. Procedures This patient has no known procedures. Results Test Description Test Time Test Comments Results Result Comments Source SHOULDER LEFT COMPLETE 2019-07-11 23:07:00 [facility] [address] [address] Patient Name: SAUNDRA GIL MR #: [id number] : 1965 Age/Sex: 54/F Req #: [id number] Adm Physician: Ordered by: PAIGE BOWIE MD Report #: [id number] Location: ER Room/Bed: Procedure: [id number] DX/SHOULDER LEFT COMPLETE Exam Date: 07/11/19 Exam Time: 2230 REPORT STATUS: Signed X-ray left shoulder 2 views HISTORY: Pain. COMPARISON: None available. FINDINGS: Bones: No acute displaced fracture. Osseous alignment is within normal limits. Joints: The joint spaces are well-maintained. Soft tissues: The soft tissues appear unremarkable. IMPRESSION: No acute radiographic abnormality. Signed by: Rodrigo Heredia DO on 07/11/2019 11:08 PM Dictated By: RODRIGO HEREDIA DO 07 Transcribed By: HERMINIA on 07/11/192307 COPY TO: PAIGE BOWIE MD CHEST SINGLE (PORTABLE) 2019-03-24 00:44:00 [address] [address] Patient Name: SAUNDRA GIL MR #: [id number] : 1965 Age/Sex: 53/F Req #: [id number] Adm Physician: Ordered by: PAIGE BWOIE MD Report #: [id number] Location: ER Room/Bed: Procedure: [id number] DX/CHEST SINGLE (PORTABLE) Exam Date: 03/24/19 Exam Time: 0023 REPORT STATUS: Signed EXAMINATION: CHEST SINGLE (PORTABLE) COMPARISON: Chest x-ray 09/16/2018 INDICATION: FEVER [id number] 0023 Y DISCUSSION: Frontal view of the chest obtained at 0028 hours. HEART AND MEDIASTINUM: The cardiomediastinal silhouette is unremarkable. LINES: None. LUNGS: The lungs are well inflated and clear. No pneumonia or pulmonary edema. PLEURA: No pleural effusion or pneumothorax. BONES AND SOFT TISSUES: Surgical anchor in the right shoulder is stable. No focal osseous lesion. The soft tissues are normal. IMPRESSION: No acute cardiopulmonary disease. Signed by: Dr. Ashley Drew MD on 03/24/2019 12:44 AM Dictated By: ASHLEY DREW MD Transcribed By: HERMINIA on 03/24/1943 COPY TO: PAIGE BOWIE MD CT ABDOMEN/PELVIS W 2019-03-24 00:32:00 [address] [address] Patient Name: SAUNDRA GIL MR #: [id number] : 1965 Age/Sex: 53/F Req #: [id number] Adm Physician: Ordered by: PAIGE BOWIE MD Report #: [id number] Location: ER Room/Bed: Procedure: [id number] CT/CT ABDOMEN/PELVIS W Exam Date: Exam Time: REPORT STATUS: Signed CT Abdomen And Pelvis with Intravenous Contrast INDICATION: LLQ PAIN Y TECHNIQUE: Thin collimation axial images obtained from the diaphragm to the level of the pubic symphysis following the uneventful administration of 100 cc of low osmolar, nonionic intravenous contrast. Oral contrast was administered. Dose reduction techniques used: Automated exposure control, adjustment of the mAs and/or kVp according to patient size, standardized low-dose protocol, and/or iterative reconstruction technique. RADIATION DOSE: Total DLP: 549.48 mGy*cm Estimated effective dose: (DLP x 0.015 x size factor) mSv CTDIvol has been reviewed. It is below the limits set by the Radiation Protocol Committee (RPC). COMPARISON: CT abdomen/pelvis 03/07/2018. ABDOMEN FINDINGS: Lung Bases: Clear. The visualized portions of the mediastinum are normal.. Liver: Normal attenuation. No evidence for mass. Gallbladder: Present and appears normal. No biliary ductal dilatation. Pancreas: Normal attenuation without mass or ductal dilatation. Spleen: Normal in size. No evidence of mass. Adrenal Glands: No evidence for mass. Kidneys: Right: Normal enhancement. No soft tissue mass. No hydronephrosis. Left: Normal enhancement. No soft tissue mass. No hydronephrosis. Lymph Nodes: No enlarged abdominal or periaortic lymph nodes. Aorta: Normal in diamet er PELVIS FINDINGS: Bowel: Stomach: Normal. Small Bowel: Normal in caliber with normal wall thickness. Large Bowel: Diverticulosis coli, particularly of the distal descending/proximal sigmoid colon with several inflamed diverticula, associated mural thickening and pericolonic inflammation. No loculated fluid collection. Appendix: Normal appendix. Bladder: Normal. The uterus is present and normal in morphology. Follicle/cyst in the left ovary measures 2.9 cm and is new. Peritoneum/retroperitoneum: Trace amount of pelvic ascites, particularly along the left paracolic gutter and in the posterior pelvis. No loculated fluid collection. No free air. Bones: Mild degenerative changes of the spine at L5-S1. IMPRESSION: 1. Acute diverticulitis of the distal descending/proximal sigmoid colon. No evidence of abscess. 2. Unilocular cyst or follicle in the left ovary as described above. Signed by: Dr. Ashley Drew MD on 03/24/2019 12:36 AM Dictated By: ASHLEY DREW MD Transcribed By: HERMINIA on 03/24/1935 COPY TO: PAIGE BOWIE MD BONE DXA DUAL ENERGY 2018-12-13 09:48:00 [address] [address] Patient Name: SAUNDRA GIL MR #: [id number] : 1965 Age/Sex: 53/F Req #: [id number] Adm Physician: Ordered by: TORI WYLIE MD Report #: [id number] Location: DX Room/Bed: Procedure: [id number] DX/BONE DXA DUAL ENERGY Exam Date: Exam Time: REPORT STATUS: Signed Exam: Bone mineral density study. History: 53-year-old female. Comparison: None Discussion: Evaluation of the left hip and lumbar spine was performed utilizing DEXA Hologic bone densitometer. The study is technically adequate. The patient's fracture risk is compared to an age-matched control. Left femoral neck bone mineral density: 0.941 g/cm2, T-score is 0.8, Z-score is 1.7. No previous comparison. Lumbar spine total bone mineral density: 1.301 gm/cm2, T-score is 2.3, Z- score is 3.1. No previous comparison. Impression: Bone mineralization by WHO Classification using T score is normal, fracture risk is not increased. <T score: NL = -1 or higher Osteopenia = -1 to -2.5 Osteoporosis = - 2.5 or lower Z score: < - 1.5 concerning for path> Recommendations: Medical evaluation for secondary causes of low bone mineral density may be appropriate. Correlate clinically for the necessity and timing of the next bone mineral density study. National Osteoporosis Foundation recommendations: Initiate therapy to reduce fracture risk in postmenopausal women with -BMD t-scores below -2 by central DXA with no risk factors -BMD t-scores below -1.5 by central DXA with one or more risk factors (first deg relative with hip fracture, prior personal fracture, low body weight, smoking) -A prior vertebral or hip fracture AACE (Clinical Endocrinology) recommends treating the following: Postmenopausal women who have osteoporosis as diagnosed by fragility fractures or t scores -2.5 or below Postmenopausal women who have risk factors (including fh of hip fracture, low body weight, smoking, risk of falling, high bone turnover, advancing age) and borderline low BMD T scores of -1.5 or below Adequate intake of calcium (at least 1200mg/day) and vitamin D (400-800 IU/day). Regular weight bearing and muscle - strengthening exercises Avoid smoking and excessive alcohol Signed by: Gerald Kaba on 12/13/2018 9:50 AM Dictated By: GERALD KABA MD 0900 Transcribed By: HERMINIA on 12/13/18 0950 COPY TO: TORI WYLIE MD MAMMOGRAPHY DIGITAL SCR BILAT 2018-09-20 12:56:00 [facility] [address] [place] [address] Patient Name: SAUNDRA GIL MR #: [id number] : 1965 Age/Sex: 53/F Req #: [id number] Adm Physician: Ordered by: TORI WYLIE MD Report #: [id number] Location: MAMMO Room/Bed: Procedure: [id number] MG/MAMMOGRAPHY DIGITAL SCR BILAT Exam Date: 09/20/18 Exam Time: 1140 REPORT STATUS: Signed #[id number] - MGSCRBIL #BILATERAL DIGITAL SCREENING MAMMOGRAM WITH CAD: 09/20/2018 CLINICAL: Routine screening. Comparison is made to exam dated: 01/19/2013 mammogram - [facility]. Current study contains 4 films. The tissue of both breasts is heterogeneously dense. This may lower the sensitivity of mammography. Current study was also evaluated with a Computer Aided Detection (CAD) system. There are benign calcifications in both breasts. There also is a benign mass in the left breast that appears slightly smaller. No significant masses, calcifications, or other findings are seen in either breast. There has been no significant interval change. IMPRESSION: BENIGN There is no mammographic evidence of malignancy. A 1 year screening mammogram is recommended. The patient will be notified by letter of the results. Teja Nielsen Jr., D.O. cw/:09/27/2018 16:19:53 Financial Services Associate: Andreea FREGOSO(Denis)(Julio), [facility] ter letter sent: Compared to Prior B9 Mammogram BI-RADS: 2 Benign Dictated By: TEJA NIELSEN DO 1619 Transcribed By: MARIKA on 09/27/18 1619 COPY TO: TORI WYLIE MD CHEST 2 VIEWS 2018-09-16 10:22:00 [address] [address] Patient Name: SAUNDRA GIL MR #: [id number] : 1965 Age/Sex: 53/F Req #: [id number] Adm Physician: Ordered by: SAIDA OLIVER MD Report #: [id number] Location: [facility] Room/Bed: Procedure: [id number] DX/CHEST 2 VIEWS Exam Date: 09/16/18 Exam Time: 0950 REPORT STATUS: Signed EXAM: CHEST 2 VIEWS, PA and lateral DATE: 09/16/2018 Time stamp on exam: 9:56 AM INDICATION: Wheezing COMPARISON: 07/16/2018 FINDINGS: LINES/TUBES: None LUNGS: No consolidations or edema. PLEURA: No effusions or pneumothorax. HEART AND MEDIASTINUM: Normal size and contour. BONES AND SOFT TISSUES: No acute findings. IMPRESSION: No acute thoracic abnormality. Signed by: Dr. Teja Nielsen DO on 09/16/2018 10:23 AM Dictated By: TEJA NIELSEN DO 1023 Transcribed By: HERMINIA on 09/16/18 1023 COPY TO: SAIDA OLIVER MD CXR 2 VIEW - HOPD 2018-07-16 21:57:00 [facility] [place] [address] Patient Name: SAUNDRA GIL MR #: [id number] : 1965 Age/Sex: 53/F Req #: [id number] Adm Physician: Ordered by: RYAN SUAZO MD Report #: [id number] Location: [facility] Room/Bed: Procedure: [id number] HOPD/CXR 2 VIEW - HOPD Exam Date: Exam Time: REPORT STATUS: Signed EXAMINATION: CXR 2 VIEW - HOPD INDICATION: Chest pain COMPARISON: None FINDINGS: PA and lateral views TUBES and LINES: None. LUNGS: Lungs are well inflated. There is no evidence of pneumonia or pulmonary edema. PLEURA: No pleural effusion or pneumothorax. HEART AND MEDIASTINUM: The cardiomediastinal silhouette is unremarkable.. BONES AND SOFT TISSUES: No focal osseous lesions. Soft tissues are unremarkable. UPPER ABDOMEN: No free air under the diaphragm. IMPRESSION: No acute thoracic abnormality. Signed by: Dr. Ashley Drew MD on 07/16/2018 9:57 PM Dictated By: ASHLEY DREW MD 56 Transcribed By: HERMINIA on 07/16/182156 COPY TO: RYAN SUAZO MD CT ABDOMEN W/WO-HOPD 2018-03-07 18:58:00 [address] [address] Patient Name: SAUNDRA GIL MR #: [id number] : 1965 Age/Sex: 52/F Req #: [id number] Adm Physician: Ordered by: KONSTANTIN ERIC MD Report #: [id number] Location: [facility] Room/Bed: Procedure: [id number] HOPD/CT ABDOMEN W/WO-HOPD Exam Date: 03/07/18 Exam Time: 1720 REPORT STATUS: Signed EXAM: CT Abdomen and Pelvis WITHOUT and WITH contrast INDICATION: Left lower quadrant pain, history of diverticulosis, renal stones, hematuria COMPARISON: CT abdomen and pelvis 11/07/2016 TECHNIQUE: Abdomen and pelvis were scanned utilizing a multidetector helical scanner from the lung base to the pubic symphysis before and after administration of IV contrast. Coronal and sagittal reformations were obtained. Routine protocol was performed. IV CONTRAST: None. ORAL CONTRAST: Water RADIATION DOSE: Total DLP: 1439 mGy*cm Estimated effective dose: (DLP x 0.015 x size factor) mSv COMPLICATIONS: None FINDINGS: LINES and TUBES: None. LOWER THORAX: Unremarkable HEPATOBILIARY: No focal hepatic lesions. No biliary ductal dilation. GALLBLADDER: No radio-opaque stones or sludge. No wall thickening. SPLEEN: No splenomegaly. PANCREAS: No focal masses or ductal dilatation. ADRENALS: No adrenal nodules KIDNEYS/URETERS: No hydronephrosis. No cystic or solid mass lesions. 3 mm nonobstructing calcified stone in the inferior pole of the right kidney on series 2, image 43. GI TRACT: No abnormal distention, wall thickening, or evidence of bowel obstruction. Diffuse diverticulosis throughout the sigmoid colon with associated extensive fat stranding and mild fluid collection within the distal sigmoid in the pelvis on series 2, image 72. No free air. Scattered diverticulosis throughout the remaining colon. Appendix is normal. PELVIC ORGANS/BLADDER: Unremarkable. LYMPH NODES: No lymphadenopathy. VESSELS: Unremarkable. PERITONEUM / RETROPERITONEUM: No free air or fluid. BONES: Unremarkable. SOFT TISSUES: Unremarkable. IMPRESSION: 1. Acute severe diverticulitis of the sigmoid colon. No abscess or free air in the pelvis. Recommend follow-up after treatment is completed. 2. Nonobstructing right nephrolithiasis. Signed by: Dr. Clarissa Abel M.D. on 03/07/2018 7:04 PM Dictated By: CLARISSA ABEL MD 03 Transcribed By: HERMINIA on 03/07/181903 COPY TO: KONSTANTIN ERIC MD ANKLE 3 + VIEWS RIGHT [place] [address] Patient Name: SAUNDRA GIL MR #: [id number] : 1965 Age/Sex: 52/F Req #: [id number] Adm Physician: Ordered by: SAIDA ESCOBEDO MD Report #: [id number] Location: ER Room/Bed: Procedure: [id number] DX/ANKLE 3 + VIEWS RIGHT Exam Date: 08/10/17 Exam Time: 0845 REPORT STATUS: Signed PROCEDURE: X-RAY RIGHT ANKLE, COMPLETE INDICATION: Status post fall COMPARISON: None. FINDINGS: The ankle mortise is intact. No fracture or dislocation. Minimal soft tissue swelling adjacent to the lateral malleolus. CONCLUSION: No acute bony abnormality. Teja Nielsen D.O. Dictated by: Teja Nielsen D.O. on 08/10/2017 at 9:16 Electronically approved by: Teja Nielsne D.O. on 08/10/2017 at 9:16 Dictated By: TEJA NIELSEN DO 6 Transcribed By: DEMETRICE on 08/10/17916 COPY TO: SAIDA ESCOBEDO MD
[2019-12-10 04:20] LABS: BASOPHILS % 0.3 % (0.0-1.0); EOSINOPHILS % 0.3 % (0.0-6.0); HEMATOCRIT 42.2 % (34.2-44.1); HEMOGLOBIN 14.3 g/dL (12.0-16.0); LYMPHOCYTES # (AUTO) 1.5 (1.0-3.2); LYMPHOCYTES % 38.8 % (18.0-39.1); MEAN CORPUSCULAR HEMOGLOBIN 30.4 pg (28-32); MEAN CORPUSCULAR HGB CONC 33.9 g/dL (31-35); MEAN CORPUSCULAR VOLUME 89.8 fL (81-99); MONOCYTES # (AUTO) 0.5 (0.2-0.8); MONOCYTES % 12.9 % (4.4-11.3); NEUTROPHILS # (AUTO) 1.8 (2.1-6.9); NEUTROPHILS % 47.4 % (38.7-80.0); PLATELET COUNT 216 x10e3/uL (140-360)
[2019-12-10 04:38] LABS: CREATINE KINASE 51 IU/L (29-168)
[2019-12-10 04:40] LABS: ALANINE AMINOTRANSFERASE 25 IU/L (0-55); ALBUMIN 4.3 g/dL (3.5-5.0); ALBUMIN/GLOBULIN RATIO 1.7 (0.8-2.0); ALKALINE PHOSPHATASE 55 IU/L (40-150); ANION GAP 21.4 mmol/L (8-16); BLOOD UREA NITROGEN 11 mg/dL (7-26); BUN/CREATININE RATIO 13 (6-25); CALCIUM 8.5 mg/dL (8.4-10.2); CARBON DIOXIDE 17 mmol/L (22-29); CHLORIDE 105 mmol/L (98-107); CREATININE, SERUM 0.86 mg/dL (0.57-1.11); EST GLOMERULAR FILTRATION RATE > 60 ML/MIN (60-); GLUCOSE 92 mg/dL (74-118); POTASSIUM 3.4 mmol/L (3.5-5.1); SODIUM 140 mmol/L (136-145)
--- NOTE | 2019-12-10 05:04 | Diagnostic Imaging Report ---
EXAMINATION: CHEST SINGLE (PORTABLE) INDICATION: Cough COMPARISON: Chest x-ray 03/24/2019 FINDINGS: TUBES and LINES: None. LUNGS: Normal lung volumes. Lungs are clear. No consolidations. PLEURA: No pleural effusion or pneumothorax. HEART AND MEDIASTINUM: The cardiomediastinal silhouette is unremarkable. BONES AND SOFT TISSUES: No acute osseous lesion. Soft tissues are unremarkable. UPPER ABDOMEN: No free air under the diaphragm. IMPRESSION: No acute thoracic radiographic abnormality. Signed by: Rodrigo Richard DO on 12/10/2019 5:00 AM
[2019-12-10] MEDS ORDERED: MORPHINE SULFATE 2 MG/ML SYR 1ML IV PRN (05:15)
--- OUTSIDE RECORDS SUMMARY | 2019-12-10 05:25 | XMS REPORT | Continuity of Care Document ---
Author Author [facility] t Organization [facility] Address [address] [place] [address] Phone Unavailable Care Team Providers Care Blade Changer Name Role Phone GERALD SANDY Attphys Unavailable Alisha BOWIE Attphys Unavailable WYLIETROI Attphys Unavailable ANTONIETA SALDIVAR, Venecia CINTRON Attphys Unavailable MANEEVESMarc, Bello DAVIS Attphys Unavailable JEANETH, Richard PRYOR Attphys Unavailable GREGG, P SAIDA Attphys Unavailable Problems This patient has no known problems. Allergies, Adverse Reactions, Alerts This patient has no known allergies or adverse reactions. Medications This patient has no known medications. Procedures This patient has no known procedures. Results Test Description Test Time Test Comments Results Result Comments Source CHEST SINGLE (PORTABLE) 2019-12-10 05:00:00 [place] [address] Patient Name: SAUNDRA GIL MR #: [id number] : 1965 Age/Sex: 54/F Req #: [id number] Adm Physician: Ordered by: GERALD SANDY DO Report #: [id number] Location: ER Room/Bed: Procedure: [id number] DX/CHEST SINGLE (PORTABLE) Exam Date: Exam Time: REPORT STATUS: Signed EXAMINATION: CHEST SINGLE (PORTABLE) INDICATION: Cough COMPARISON: Chest x-ray 03/24/2019 FINDINGS: TUBES and LINES: None. LUNGS: Normal lung volumes. Lungs are clear. No consolidations. PLEURA: No pleural effusion or pn eumothorax. HEART AND MEDIASTINUM: The cardiomediastinal silhouette is unremarkable. BONES AND SOFT TISSUES: No acute osseous lesion. Soft tissues are unremarkable. UPPER ABDOMEN: No free air under the diaphragm. IMPRESSION: No acute thoracic radiographic abnormality. Signed by: Rodrigo Heredia DO on 12/10/2019 5:00 AM Dictated By: RODRIGO HEREDIA DO 0500 Transcribed By: EHRMINIA on 12/10/19499 COPY TO: GERALD SANDY DO SHOULDER LEFT COMPLETE 2019-07-11 23:07:00 [place] [address] Patient Name: SAUNDRA GIL MR #: [id number] : 1965 Age/Sex: 54/F Req #: [id number] Adm Physician: Ordered by: PAIGE BOWIE MD Report #: [id number] Location: ER Room/Bed: Procedure: [id number] DX/SHOULDER LEFT COMPLETE Exam Date: 07/11/19 Exam [...] By: HERMINIA on 07/11/192307 COPY TO: PAIGE BWOIE MD CHEST SINGLE (PORTABLE) 2019-03-24 00:44:00 [facility] [address] [address] Patient Name: SAUNDRA GIL MR #: [id number] : 1965 Age/Sex: 53/F Req #: [id number] Adm Physician: Ordered by: PAIGE BOWIE MD Report #: [id number] Location: ER Room/Bed: Procedure: [id number] DX/CHEST SINGLE (PORTABLE) Exam Date: 03/24/19 Exam Time: 0023 REPORT STATUS: Signed EXAMINATION: CHEST SINGLE (PORTABLE) COMPARISON: Chest x-ray 09/16/2018 INDICATION: FEVER [id number] 0023 Y DISCUSSION: Frontal view of the [...] BOWIE MD CT ABDOMEN/PELVIS W 2019-03-24 00:32:00 [place] [address] Patient Name: SAUNDRA GIL MR #: [id number] : 1965 Age/Sex: 53/F [facility] #: [id number] [facility] #: [id number] [facility] Physician: Ordered by: PAIGE BOWIE MD Report #: [id number] Location: ER Room/Bed: Procedure: [id number] CT/CT ABDOMEN/PELVIS W Exam Date: Exam Time: [...] MD BONE DXA DUAL ENERGY 2018-12-13 09:48:00 [place] [address] Patient Name: SAUNDRA GIL MR #: [id number] : 1965 Age/Sex: 53/F Req #: [id number] Adm Physician: Ordered by: TORI WYLIE MD Report #: [id number] Location: DX Room/Bed: Procedure: [id number] DX/BONE DXA DUAL ENERGY Exam Date: Exam [...] 9:50 AM Dictated By: GERALD KABA MD 9 Transcribed By: HERMINIA on 12/13/18949 COPY TO: TORI WYLIE MD MAMMOGRAPHY DIGITAL SCR BILAT 2018-09-20 12:56:00 [place] [address] Patient Name: SAUNDRA GIL MR #: [id number] : 1965 Age/Sex: 53/F Req #: [id number] [facility] Physician: Ordered by: TORI WYLIE MD Report #: [id number] Location: MAMMO Room/Bed: Procedure: [id number] MG/MAMMOGRAPHY DIGITAL SCR BILAT Exam Date: 09/20/18 Exam Time: 1140 REPORT STATUS: Signed #[id number] - MGSCRBIL #BILATERAL DIGITAL SCREENING MAMMOGRAM WITH CAD: 09/20/2018 CLINICAL: Routine screening. Comparison is made to exam dated: 01/19/2013 mammogram - [facility]. Current study contains 4 films. [...] results. Teja Nielsen Jr., D.O. cw/:09/27/2018 16:19:53 Rail Transit Operator: Andreea FREGOSO(Denis)(Julio), [facility] ter letter sent: Compared to Prior B9 Mammogram BI-RADS: 2 Benign Dictated By: TEJA NIELSEN DO 6741 Transcribed By: MARIKA on 09/27/180 COPY TO: TORI WYLIE MD CHEST 2 VIEWS 2018-09-16 10:22:00 [facility] [address] [address] Patient Name: SAUNDRA GIL MR #: [id number] : 1965 Age/Sex: 53/F Req #: [id number] Adm Physician: Ordered by: SAIDA OLIVER MD Report #: [id number] Location: [facility] Room/Bed: Procedure: [id number] DX/CHEST 2 VIEWS Exam Date: 09/16/18 Exam [...] CXR 2 VIEW - HOPD 2018-07-16 21:57:00 [place] [address] Patient Name: SAUNDRA GIL MR #: [id number] : 1965 Age/Sex: 53/F Req #: [id number] Adm Physician: Ordered by: RYAN SUAZO MD Report #: [id number] Location: [facility] Room/Bed: Procedure: [id number] HOPD/CXR 2 VIEW - HOPD Exam Date: [...] SUAZO MD CT ABDOMEN W/WO-HOPD 2018-03-07 18:58:00 [place] [address] Patient Name: SAUNDRA GIL MR #: [id number] : 1965 Age/Sex: 52/F Req #: [id number] Adm Physician: Ordered by: KONSTANTIN ERIC MD Report #: [id number] Location: [facility] Room/Bed: Procedure: [id number] HOPD/CT ABDOMEN W/WO-HOPD Exam Date: 03/07/18 Exam [...] ERIC MD ANKLE 3 + VIEWS RIGHT [place] [address] Patient Name: SAUNDRA GIL MR #: [id number] : 1965 Age/Sex: 52/F Req #: [id number] Adm Physician: Ordered by: SAIDA ESCOBEDO MD Report #: [id number] Location: ER Room/Bed: Procedure: [id number] DX/ANKLE 3 + VIEWS RIGHT Exam Date: [...] 08/10/2017 at 9:16 Electronically approved by: Teja Nielsen D.O. on 08/10/2017 at 9:16 Dictated By: TEJA NIELSEN DO 6 Transcribed By: DEMETRICE on 08/10/17916 COPY TO: SAIDA ESCOBEDO MD
[2019-12-10] MEDS ORDERED: DEXAMETHASONE SOD PHOS 10 MG/1 ML VIAL IV ONE (05:30)
[2019-12-10] MEDS ORDERED: AZITHROMYCIN 500MG/NS 250 ML 250 ML IV ONE (05:30)
--- NOTE | 2019-12-10 05:47 | NUR ---
PT ARRIVED BY STRETCHER TO ROOM 299. PT IS AAOX3, RR SOB WITH EXERTION, DRY COUGH. PT ORIENTED TO HOSPITAL ROOM, CALL LIGHT, PHONE, BED CONTROLS AND LIGHTS. PT CHANGED TO HOME CLOTHES REFUSING GOWN. TELEMETRY [address] WITH SR NOTED. PT CURRENTLY ON DROPLET PRECAUTIONS. LEFT PT LAYING SEMI FOWLERS IN BED, BED IN LOW LOCKED POSITION, SIDE RAILS UPX2, CALL LIGHT AND PHONE WITHIN REACH.
[2019-12-10] MEDS ORDERED: SODIUM CHLORIDE 0.9% 1000ML 1,000 ML IV SCH (06:15)
[2019-12-10] MEDS ORDERED: POTASSIUM CHLORIDE 20 MEQ TAB CR PO ONE (06:30)
[2019-12-10] MEDS ORDERED: GUAIFENESIN/DEXTROMETHORPHAN LIQD 5 ML UDC NG PRN (06:30)
[2019-12-10] MEDS ORDERED: BENZONATATE 100 MG CAP PO PRN (06:30)
[2019-12-10] MEDS: METOPROLOL SUCCINATE 50 MG TAB XL PO SCH ×2 (08:30→17:53)
[2019-12-10] MEDS ORDERED: KETOROLAC TROMETHAMINE 30 MG/ML VIAL IV STA (10:33)
[2019-12-10] MEDS ORDERED: HYDROCODONE/APAP 7.5MG-325MG 1 EA TAB PO PRN (10:45)
[2019-12-10] MEDS ORDERED: ZOLPIDEM TARTRATE 5 MG TAB PO PRN (10:45)
[2019-12-10] MEDS: CEFTRIAXONE SOD 1 GM/NS 50 ML 50 ML IV SCH (11:57)
[2019-12-10] MEDS: ENOXAPARIN SOD INJ 40 MG/0.4 ML SYR SC SCH (11:58)
[2019-12-10] MEDS ORDERED: IOPAMIDOL 370 MG/ML 200 ML INFUS..BTL INJ ONE (12:03)
[2019-12-10] MEDS ORDERED: SODIUM CHLORIDE 0.9% 50ML 50 ML ONE (12:03)
--- NOTE | 2019-12-10 13:03 | Diagnostic Imaging Report ---
EXAM: CT Chest WITH contrast 12/10/2019 12:10 PM INDICATION: Chest pain and shortness of breath concerning for pulmonary embolism. COMPARISON: Same day chest radiograph. TECHNIQUE: Chest was scanned utilizing a multidetector helical scanner from the lung apex through the level of the adrenal glands with administration of IV contrast. Coronal and sagittal reformations were obtained. Routine protocol was performed. IV CONTRAST: 100 mL of Omnipaque 300 COMPLICATIONS: None RADIATION DOSE: Total DLP: 507.85 mGy*cm Estimated effective dose: (DLP x 0.014 x size factor) mSv CTDIvol has been reviewed. It is below the limits set by the Radiation Protocol Committee (RPC). Dose modulation, iterative reconstruction, and/or weight based adjustment of the mA/kV was utilized to reduce the radiation dose to as low as reasonably achievable. FINDINGS: LINES/ TUBES: None. LUNGS AND AIRWAYS: The central airways are patent and the trachea is midline. There are multifocal patchy groundglass airspace opacities throughout both lungs particularly at the bases. Vascular: There are no filling defects within the pulmonary arteries to the segmental level. The pulmonary trunk has normal caliber measuring 2.4 cm. The ascending and descending aorta have normal enhancement and caliber measuring 3.0 cm and 2.1 cm, respectively. PLEURA: The pleural spaces are clear. HEART AND MEDIASTINUM: The thyroid gland is normal. No mediastinal, hilar or axillary lymphadenopathy. The heart is normal in size. There is no pericardial effusion. UPPER ABDOMEN: Unremarkable. BONES: There are mild degenerative changes in the thoracic spine. SOFT TISSUES: There is a 1.7 x 1.4 cm left breast nodule (series 2 image 56). The soft tissues are otherwise normal. IMPRESSION: 1. No evidence of pulmonary embolism to the segmental levels. 2. Multifocal patchy groundglass airspace opacities throughout both lungs compatible with multifocal pneumonia. 3. A 1.7 cm left breast nodule. Recommend follow-up at a dedicated breast center for mammographic correlation to rule out malignancy. Signed by: Collins Zavala MD on 12/10/2019 12:59 PM
[2019-12-10] MEDS ORDERED: LOPERAMIDE HCL 2 MG CAP PO PRN (14:45)
--- NOTE | 2019-12-10 16:03 | NUR ---
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 COMES IN WITH 3 DAYS OF FEVER AND FATIGUE NOT FEELING WELL SHE GETS SHOR T OF BREATH IF SHE WALK HER o2 SAT DROPPED TO 88% THE PATIENT HAS BEEN SICK FOR A FEW DAYS PATIENT IS BEING ADMITTED HER COVID 19 WAS POSITIVE review of systems she is complaining of some nausea diarrhea shortness of breath with exertion Fever and fatigue Past medical history she denies past surgical history she denies allergies NKDA social history there is no smoking drug abuse drug abuse her family history otherwise unremarkable her physical examination is currently alert oriented her vitals stable currently afebrile HEENT normocephalic neck supple few crackles heart S1-S2 abdomen showed positive presenting symptoms no edema skin no rash medication list reviewed impression Covid 19 pneumonia superimposed bacterial pneumonia Consults superimposed bacterial pneumonia Hypoxemia Discussed with the patient about composed of plasma as well asRMZV the patient is aware there is still investigational drug she is aware about the fact sheet we discussed about it she refused convalescent plasma but she agreed to taken rmzv Rocephin 1 g daily for 5 days azithromycin 5 mg daily for 3 days Lovenox 40 mg subcu daily for DVT prophylaxis oxygen as needed We will give him to rmzv 200 mg IV piggyback now then 100 mg by daily for 5 days recheck oxygen in the morning will follow
[2019-12-10] MEDS: AZITHROMYCIN 500MG/NS 250 ML 250 ML IV SCH (17:53)
[2019-12-10] MEDS ORDERED: REMDESIVIR 200MG/NS 100ML 200 MG in SODIUM CHLORIDE 0.9% 100 ML 100 ML IV ONE (18:00)
--- NOTE | 2019-12-10 19:00 | NUR ---
WALKING ROUNDS PERFORMED, RECEIVED PT LAYING SEMI FOWLERS IN BED, AAOX3, RR EVEN AND NON-LABORED, ON ROOM AIR. NO S/SX OF DISTRESS NOTED. LEFT PT LAYING SEMI FOWLERS IN BED, BED IN LOW LOCKED POSITION, SIDE RAILS UPX2, CALL LIGHT AND PHONE WITHIN REACH.
[2019-12-11] VITALS (8 sets, daily range): BP systolic 106–123; BP diastolic 62–79
[2019-12-11] MEDS: ACETAMINOPHEN 325 MG TAB PO PRN (05:10)
[2019-12-11] MEDS: ONDANSETRON HCL INJ 2MG/ML 2ML 2 MG/ML VIAL IV PRN ×2 (05:10→12:22)
[2019-12-11 05:58] LABS: BASOPHILS % 0.3 % (0.0-1.0); EOSINOPHILS % 0.3 % (0.0-6.0); HEMATOCRIT 42.8 % (34.2-44.1); HEMOGLOBIN 14.1 g/dL (12.0-16.0); LYMPHOCYTES % 28.1 % (18.0-39.1); MEAN CORPUSCULAR HEMOGLOBIN 30.1 pg (28-32); MEAN CORPUSCULAR HGB CONC 32.9 g/dL (31-35); MEAN CORPUSCULAR VOLUME 91.5 fL (81-99); MONOCYTES # (AUTO) 0.5 (0.2-0.8); MONOCYTES % 12.4 % (4.4-11.3); NEUTROPHILS # (AUTO) 2.2 (2.1-6.9); NEUTROPHILS % 58.6 % (38.7-80.0); PLATELET COUNT 219 x10e3/uL (140-360); RED BLOOD COUNT 4.68 x10e6/uL (3.6-5.1); RED CELL DISTRIBUTION WIDTH 12.2 % (11.7-14.4)
[2019-12-11 06:33] LABS: ALANINE AMINOTRANSFERASE 19 IU/L (0-55); ALBUMIN 3.9 g/dL (3.5-5.0); ALBUMIN/GLOBULIN RATIO 1.6 (0.8-2.0); ALKALINE PHOSPHATASE 50 IU/L (40-150); ANION GAP 12.8 mmol/L (8-16); BLOOD UREA NITROGEN 8 mg/dL (7-26); BUN/CREATININE RATIO 10 (6-25); CALCIUM 8.2 mg/dL (8.4-10.2); CARBON DIOXIDE 23 mmol/L (22-29); CHLORIDE 109 mmol/L (98-107); EST GLOMERULAR FILTRATION RATE > 60 ML/MIN (60-); GLUCOSE 92 mg/dL (74-118); POTASSIUM 3.8 mmol/L (3.5-5.1); SODIUM 141 mmol/L (136-145)
--- NOTE | 2019-12-11 09:17 | Progress Note ---
DATE: SUBJECTIVE: The patient is currently feeling better. She has less pain with inspiration. She has no fever. PHYSICAL EXAMINATION: VITAL SIGNS: The blood pressure is 109/62 and pulse is 85. Saturation is 97%. HEENT: Shows no facial swelling or erythema. LYMPHATIC: Shows no submandibular, cervical, or supraclavicular adenopathy. CARDIAC: Reveals regular rhythm with normal S1 and S2. LUNGS: Auscultation of lungs reveals clear breath sounds bilaterally. There is no wheezing. ABDOMEN: Soft and nontender. There is no rebound or guarding. EXTREMITIES: Shows no leg edema or calf tenderness. There is no cyanosis or clubbing. SKIN: Shows no rashes. NEUROLOGICAL: Shows no focal abnormalities. LABORATORY DATA: White blood cell count is 3.7, hemoglobin is 14.1. The platelet count is 219. The BUN to creatinine ratio is 8 to 0.8 and the other electrolytes are within normal limits. Albumin is 3.9. RADIOGRAPHIC DATA: CT scan of the chest shows patchy ground-glass opacities in both lung ann. There is also a breast nodule that requires mammogram. IMPRESSION: 1. Viral pneumonia and COVID-19 infection. 2. Pain with inspiration. 3. Breast nodule. PLAN: 1. Complete remdesivir. 2. Continue current antibiotics. 3. The patient needs outpatient mammogram and followup for breast nodule. MD CLEMENTE Bob/[facility] /[id number]
[2019-12-11] MEDS: CEFTRIAXONE SOD 1 GM/NS 50 ML 50 ML IV SCH (09:29)
[2019-12-11] MEDS: METOPROLOL SUCCINATE 50 MG TAB XL PO SCH ×2 (09:29→16:17)
[2019-12-11] MEDS: ENOXAPARIN SOD INJ 40 MG/0.4 ML SYR SC SCH (09:29)
--- NOTE | 2019-12-11 13:44 | Consultation ---
DATE OF CONSULTATION: Pulmonary Critical Care Consultation CHIEF COMPLAINT: Chest discomfort with inspiration and COVID-19 infection. HISTORY OF PRESENT ILLNESS: The patient is a 54-year-old woman. She has a history of hypertension. She required hospitalization at [facility] approximately a year ago for hypertension and atypical chest pain. She now complains of pain on the right side with deep inspiration for 3 days. She also had a fever 3 days ago, although she is afebrile now. She does have a mild cough. She is not complaining of nausea or vomiting. She has no abdominal pain. PAST SURGICAL HISTORY: 1. Status post hysterectomy. 2. Status post breast reduction. PAST MEDICAL HISTORY: 1. Hypertension. 2. No prior history of asthma. 3. No prior coronary artery disease. SOCIAL HISTORY: The patient is not a smoker. She is not a drinker. 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 ALLERGIES: SHE IS ALLERGIC TO HYDRALAZINE. FAMILY HISTORY: Her father was recently hospitalized with COVID-19 infection 2 months ago, but has been better for 5 or 6 weeks already. REVIEW OF SYSTEMS: Fevers several days ago, although she is afebrile now and some headache. No neck pain. Pain on the right side with inspiration. Mild cough. No abdominal pain. No nausea or vomiting. No leg edema. PHYSICAL EXAMINATION: VITAL SIGNS: The patient is afebrile. The blood pressure is 136/83 and saturation is 96%. The pulse is 93. HEENT: Shows no facial swelling or erythema. LYMPHATIC: Shows no submandibular, cervical, or supraclavicular adenopathy. CARDIAC: Reveals a regular rate and rhythm with normal S1 and S2. LUNGS: Auscultation of lungs reveals clear breath sounds bilaterally. There is no wheezing. ABDOMEN: Soft and nontender. There is no rebound or guarding. EXTREMITIES: Show no leg edema or calf tenderness. There is no cyanosis or clubbing. SKIN: Shows no rashes. NEUROLOGICAL: Shows no focal abnormalities. RADIOGRAPHIC DATA: Chest x-ray shows no active disease. LABORATORY DATA: White blood cell count is 3.8, hemoglobin is 14.3, and the platelet count is 216. The BUN to creatinine ratio is normal. The carbon dioxide is 17 with a chloride of 105. Potassium is 3.4 and the anion gap is mildly elevated at 21. IMPRESSION: 1. COVID-19 and viral pneumonia. 2. Pleuritis, probably secondary to COVID-19. 3. Hypertension. 4. Metabolic acidosis. 5. Hypokalemia. PLAN: 1. The patient will receive Toradol x1 for pleuritic chest pain. 2. CT scan of chest to rule out pulmonary embolism. 3. Echocardiogram to rule out myocarditis or pericarditis related to COVID. 4. 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 5. Risks and benefits of dexamethasone discussed with the patient. Most probably she will decide to receive dexamethasone. 6. Low-dose Lovenox for venous thrombosis prophylaxis. MD CLEMENTE Bob/VIJAY /[id number]
[2019-12-11] MEDS: AZITHROMYCIN 500MG/NS 250 ML 250 ML IV SCH (16:17)
[2019-12-11] MEDS: DEXAMETHASONE SOD PHOS INJ 4 MG/ML VIAL IV SCH (16:50)
[2019-12-11] MEDS: REMDESIVIR 100MG/NS 100ML 100 MG in SODIUM CHLORIDE 0.9% 100 ML 100 ML IV SCH (17:58)
--- NOTE | 2019-12-11 19:12 | Progress Note ---
DATE: SUBJECTIVE: Ms. Martínez is feeling better. However, she remains hypoxemic. Her O2 saturation dropped to 88 when she walks. She feels bad and weak today. PHYSICAL EXAMINATION: GENERAL: She is currently alert and oriented. VITAL SIGNS: Stable, currently afebrile. HEENT: She is not icteric. NECK: Supple. CHEST: Clear. HEART: S1 and S2. ABDOMEN: Soft. IMPRESSION: COVID-19 and hypoxemia. Continue remdesivir 5 days, Rocephin for 5 days, azithromycin for 3 days, and dexamethasone. We will follow. MD LOIDA Page/MODL /[id number]
[2019-12-12] VITALS (7 sets, daily range): BP systolic 95–120; BP diastolic 61–83
--- NOTE | 2019-12-12 07:28 | NUR ---
PATIENT MOVED TO ROOM 184 WITH ALL BELONGINGS.
[2019-12-12] MEDS ORDERED: SODIUM CHLORIDE 0.9% 250ML 250 ML ONE (08:20)
[2019-12-12] MEDS: CEFTRIAXONE SOD 1 GM/NS 50 ML 50 ML IV SCH (08:32)
[2019-12-12] MEDS: METOPROLOL SUCCINATE 50 MG TAB XL PO SCH ×2 (08:32→16:13)
[2019-12-12] MEDS: ENOXAPARIN SOD INJ 40 MG/0.4 ML SYR SC SCH (08:32)
[2019-12-12] MEDS: AZITHROMYCIN 500MG/NS 250 ML 250 ML IV SCH (16:13)
[2019-12-12] MEDS: DEXAMETHASONE SOD PHOS INJ 4 MG/ML VIAL IV SCH (16:13)
[2019-12-12] MEDS: REMDESIVIR 100MG/NS 100ML 100 MG in SODIUM CHLORIDE 0.9% 100 ML 100 ML IV SCH (18:07)
--- NOTE | 2019-12-12 23:20 | NUR ---
infectious disease progress note Patient seen and examined chart reviewed the patient is doing well she still gets shortness of breath with exertion still on 2 L oxygen her physical examination alert oriented does not seem to be in acute distress vital signs are currently afebrile HEENT she has not PALE NOT ICTERIC normocephalic neck supple chest few crackles at the bases heart S1-S2 abdomen soft was present extremities no edema skin no rash LAB DATA WAS REVIEWED AND DISCUSSED WITH MEDICAL TEAM review chart reviewed impression Covid 19 Respiratory failure Superimposed bacterial pneumonia To continue with oxygen as needed to continue with dexamethasone to continue with antibiotic and to finish course of rmzv
[2019-12-13] VITALS (8 sets, daily range): BP systolic 94–112; BP diastolic 49–72
[2019-12-13 07:23] LABS: BASOPHILS % 0.2 % (0.0-1.0); HEMATOCRIT 40.4 % (34.2-44.1); HEMOGLOBIN 13.5 g/dL (12.0-16.0); LYMPHOCYTES # (AUTO) 0.9 (1.0-3.2); LYMPHOCYTES % 7.2 % (18.0-39.1); MEAN CORPUSCULAR HEMOGLOBIN 30.1 pg (28-32); MEAN CORPUSCULAR HGB CONC 33.4 g/dL (31-35); MONOCYTES # (AUTO) 0.6 (0.2-0.8); MONOCYTES % 4.5 % (4.4-11.3); NEUTROPHILS # (AUTO) 10.7 (2.1-6.9); NEUTROPHILS % 87.5 % (38.7-80.0); PLATELET COUNT 256 x10e3/uL (140-360); RED BLOOD COUNT 4.49 x10e6/uL (3.6-5.1)
[2019-12-13 07:40] LABS: ALANINE AMINOTRANSFERASE 17 IU/L (0-55); ALBUMIN 3.9 g/dL (3.5-5.0); ALBUMIN/GLOBULIN RATIO 1.6 (0.8-2.0); ALKALINE PHOSPHATASE 56 IU/L (40-150); ANION GAP 12.2 mmol/L (8-16); BLOOD UREA NITROGEN 12 mg/dL (7-26); BUN/CREATININE RATIO 17 (6-25); CALCIUM 8.7 mg/dL (8.4-10.2); CARBON DIOXIDE 24 mmol/L (22-29); CHLORIDE 111 mmol/L (98-107); CREATININE, SERUM 0.72 mg/dL (0.57-1.11); EST GLOMERULAR FILTRATION RATE > 60 ML/MIN (60-); GLUCOSE 143 mg/dL (74-118); POTASSIUM 4.2 mmol/L (3.5-5.1); SODIUM 143 mmol/L (136-145)
[2019-12-13] MEDS: METOPROLOL SUCCINATE 50 MG TAB XL PO SCH ×2 (09:00→15:54)
[2019-12-13] MEDS: CEFTRIAXONE SOD 1 GM/NS 50 ML 50 ML IV SCH (09:13)
[2019-12-13] MEDS: ENOXAPARIN SOD INJ 40 MG/0.4 ML SYR SC SCH (09:13)
--- NOTE | 2019-12-13 11:17 | Progress Note ---
DATE: SUBJECTIVE: The patient is feeling better. She is having less dyspnea. She is still using 2 L of oxygen. She is completing her full course of remdesivir. PHYSICAL EXAMINATION: VITAL SIGNS: The patient is afebrile. The blood pressure is 105/62, saturation is 97% on 2 L and the pulse is 57. HEENT: Shows no facial swelling or erythema. LYMPHATIC: Shows no submandibular, cervical, or supraclavicular adenopathy. CARDIAC: Reveals regular rate and rhythm with normal S1, S2. LUNGS: Auscultation of lungs reveals rhonchorous breath sounds bilaterally. There is no wheezing. ABDOMEN: Soft and nontender. There is no rebound or guarding. EXTREMITIES: Shows no leg edema or calf tenderness. There is no cyanosis or clubbing. SKIN: Shows no rashes. NEUROLOGICAL: Shows no focal abnormalities. LABORATORY DATA: White blood cell count is 12.2 and hemoglobin is 13.5. The platelet count is 256. The MVA-vb-aeqmjfznzr ratio is 12 to 0.72. The other electrolytes are within normal limits. IMPRESSION: 1. Viral pneumonia and COVID-19 infection. 2. Pseudotumor cerebri. 3. Hypertension. 4. Pleuritis that has resolved. PLAN: 1. Complete course of remdesivir. 2. Dexamethasone. 3. Wean off oxygen. 4. Possible discharge home, once remdesivir is completed. Ronaldo Cowan MD [facility]/MODL /[id number]
[2019-12-13] MEDS: AZITHROMYCIN 500MG/NS 250 ML 250 ML IV SCH (15:54)
[2019-12-13] MEDS: DEXAMETHASONE SOD PHOS INJ 4 MG/ML VIAL IV SCH (15:54)
[2019-12-13] MEDS: DOCUSATE SODIUM 100 MG CAP PO SCH (16:13)
[2019-12-13] MEDS: ACETAMINOPHEN 325 MG TAB PO PRN (16:13)
[2019-12-13] MEDS: REMDESIVIR 100MG/NS 100ML 100 MG in SODIUM CHLORIDE 0.9% 100 ML 100 ML IV SCH (17:29)
--- NOTE | 2019-12-13 20:16 | Progress Note ---
DATE: SUBJECTIVE: Ms. Martínez is feeling better today. She is still having headache and some weakness, but overall is better. She is currently on 2 L, but probably can do well without oxygen. REVIEW OF SYSTEMS: Otherwise unremarkable. PHYSICAL EXAMINATION: GENERAL: She is currently alert and oriented. VITAL SIGNS: Stable, currently afebrile. HEENT: She is not icteric. NECK: Supple. CHEST: Clear. HEART: S1 and S2. ABDOMEN: Soft. Bowel sounds present. EXTREMITIES: No edema. SKIN: No rash. IMPRESSION: COVID-19, respiratory failure, pseudotumor cerebri, and hypertension. Discussed with the patient. We will check her O2 saturation with ambulation. To continue as ordered with remdesivir and dexamethasone. Reassess in the morning. If she is not hypoxemic and she is feeling well, could be discharged home. No treatment. MD LOIDA Page/VIJAY /[id number]
[2019-12-14] VITALS (9 sets, daily range): BP systolic 96–126; BP diastolic 50–81
[2019-12-14] MEDS: DOCUSATE SODIUM 100 MG CAP PO SCH ×2 (09:50→17:51)
[2019-12-14] MEDS: ENOXAPARIN SOD INJ 40 MG/0.4 ML SYR SC SCH (09:51)
[2019-12-14] MEDS: METOPROLOL SUCCINATE 50 MG TAB XL PO SCH ×2 (09:51→17:52)
--- NOTE | 2019-12-14 12:50 | Progress Note ---
DATE: SUBJECTIVE: The patient is feeling better. She is down to 1.5 L. PHYSICAL EXAMINATION: VITAL SIGNS: Blood pressure is 121/81, saturation is 98% on 1.5 L and pulse is 66. HEENT: Shows no facial swelling or erythema. LYMPHATIC: Shows no submandibular, cervical, or supraclavicular adenopathy. CARDIAC: Reveals regular rate and rhythm with normal S1 and S2. LUNGS: Auscultation of lungs reveals clear breath sounds bilaterally. ABDOMEN: Soft and nontender. There is no rebound or guarding. EXTREMITIES: Shows no leg edema or calf tenderness. There is no cyanosis or clubbing. SKIN: Shows no rashes. NEUROLOGICAL: Shows no focal abnormalities. LABORATORY DATA: CBC is within normal limits. IMPRESSION: 1. Viral pneumonia and COVID-19 infection. 2. Hypertension. 3. Pleuritis that has resolved. PLAN: 1. Complete remdesivir. 2. Complete dexamethasone. 3. Wean off oxygen. 4. Arrange for discharge after completion of remdesivir. Ronaldo Cowan MD [facility]/MODL /[id number]
--- NOTE | 2019-12-14 16:09 | NUR ---
INFECTIOUS DISEASE PROGRESS NOTE DR. SAE SHERIFF SUBJECTIVE: Ms. Martínez is feeling better today. She is still having headache and some weakness, but overall is better. She is currently on 1.5 L, but probably can do well without oxygen. REVIEW OF SYSTEMS: + weakness, +debility + SOB ALL 14 POINT ROS NEG UNLESS OTHERWISE NOTED PHYSICAL EXAMINATION: GENERAL: She is currently alert and oriented. VITAL SIGNS: Stable, currently afebrile. HEENT: She is not icteric. NECK: Supple. CHEST: Clear. HEART: S1 and S2. ABDOMEN: Soft. Bowel sounds present. EXTREMITIES: No edema. SKIN: No rash. RADIOLOGY: reviewed LABS: reviewed IMPRESSION: COVID-19 respiratory failure pseudotumor cerebri hypertension PLAN Discussed with the patient We will check her O2 saturation with ambulation Finish RMSV, Dexamethasone CM Set up home oxygen Melinda Barriga MSN, [employer]P IMP[employer]MENTATION CONSULTANT, AGACNP-BC Sae Sheriff M.D.
[2019-12-14] MEDS: DEXAMETHASONE SOD PHOS INJ 4 MG/ML VIAL IV SCH (17:51)
[2019-12-14] MEDS: REMDESIVIR 100MG/NS 100ML 100 MG in SODIUM CHLORIDE 0.9% 100 ML 100 ML IV SCH (17:52)
--- NOTE | 2019-12-14 19:28 | NUR ---
Patient received sitting up in bed. AAO x 4. Patient had no complaints of pain. Respirations even and non-labored on 1L NC. Safety measures in place. Patient instructed to call for assistance when needed. Call light within reach.
[2019-12-15 00:09] VITALS: BP 116/69
[2019-12-15 05:15] VITALS: BP 108/64
--- NOTE | 2019-12-15 07:00 | NUR ---
Patient resting comfortably. Bed-side report given to oncoming nurse.
[2019-12-15 07:25] VITALS: BP 136/73
--- NOTE | 2019-12-15 07:25 | NUR ---
PATIENT SITTING UP IN BED TALKING TO STAFF MEMBER, NO DISTRESS NOTED. ALL PERSONAL ITEMS CLOSE TO PATIENT. BED IN LOWER POSITION, CALL LIGHT AT REACH.
[2019-12-15 07:49] VITALS: BP 136/73
[2019-12-15] MEDS: ENOXAPARIN SOD INJ 40 MG/0.4 ML SYR SC SCH (09:00)
[2019-12-15] MEDS: METOPROLOL SUCCINATE 50 MG TAB XL PO SCH ×2 (09:21→17:00)
[2019-12-15] MEDS: DOCUSATE SODIUM 100 MG CAP PO SCH ×2 (09:21→17:35)
--- NOTE | 2019-12-15 11:19 | NUR ---
MD ORDERED TO GIVE THE PATIENT REMDESIVIR EARLIER AT 12PM. THE PATIENT REFUSED AND STATED THAT SHE WOULD PREFER TO RECEIVED IT ONE HOUR BEFORE THE SCHEDULED TIME.
[2019-12-15 11:52] VITALS: BP 128/71
--- NOTE | 2019-12-15 15:27 | NUR ---
MD IN TO SEE PATIENT, NO NEW ORDER RECEIVED.
--- NOTE | 2019-12-15 15:56 | Progress Note ---
DATE: SUBJECTIVE: The patient feels better. She has less dyspnea. She has no fever. She is completing remdesivir today. PHYSICAL EXAMINATION: VITAL SIGNS: Blood pressure is 128/71, saturations at 96% and the pulse is 53. HEENT: Shows no facial swelling or erythema. LYMPHATIC: Shows no submandibular, cervical, or supraclavicular adenopathy. CARDIAC: Reveals regular rate and rhythm with normal S1 and S2. LUNGS: Auscultation of lungs reveals rhonchorous breath sounds bilaterally. There is no wheezing. ABDOMEN: Soft and nontender. There is no rebound or guarding. EXTREMITIES: Shows no leg edema or calf tenderness. IMPRESSION: 1. Viral pneumonia and COVID-19 infection. 2. Hypertension. 3. Pleuritis that has resolved. PLAN: 1. Discharge home today. 2. Complete antibiotics and dexamethasone as an outpatient. MD CLEMENTE Bob/VIJAY /[id number]
[2019-12-15 16:00] VITALS: BP 111/78
--- NOTE | 2019-12-15 16:21 | Progress Note ---
DATE: SUBJECTIVE: Ms. Martínez is doing better. There is no new complaint. PHYSICAL EXAMINATION: GENERAL: Currently alert and oriented. VITAL SIGNS: Stable, currently afebrile. HEENT: She is not icteric. NECK: Supple. CHEST: Clear bilateral. HEART: S1 and S2. ABDOMEN: Soft. Bowel sounds present. EXTREMITIES: No edema. SKIN: No rash. IMPRESSION: COVID-19, improving. The patient could be discharged home. No need for treatment. No need for the medication. To stay in isolation for 3 weeks since onset of symptoms. Thank you for asking me to see this patient. Follow up as an outpatient. No need to recheck PCR. MD LOIDA Page/VIJAY /[id number]
[2019-12-15] MEDS: DEXAMETHASONE SOD PHOS INJ 4 MG/ML VIAL IV SCH (17:00)
[2019-12-15] MEDS: REMDESIVIR 100MG/NS 100ML 100 MG in SODIUM CHLORIDE 0.9% 100 ML 100 ML IV SCH (17:35)
--- NOTE | 2019-12-15 18:54 | NUR ---
PATIENT DISCHARGED HOME. DISCHARGE INSTRUCTIONS AND FOLLOW UP GIVEN TO PATENT, SHE VERBALIZED UNDERSTANDING. IV TO RIGHT AC REMOVED WITH TIP INTACT. ALL PERSONAL ITEMS TAKEN WITH PATIENT. REFUSED WHEEL CHAIR, BUT WAS ACCOMPANIED BY THE HOSPITAL STAFF TO FRONT LOBBY IN STABLE CONDITION.
--- NOTE | 2019-12-18 06:17 | Discharge Summary ---
DISCHARGE DIAGNOSES: 1. Coronavirus disease 2019 pneumonia. 2. Acute respiratory failure with hypoxia. 3. Hypertension. 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 The patient required 2 L nasal cannula. She was seen by Infectious Disease and Pulmonary, where she was placed on standard azithromycin, oxygen, Decadron, and remdesivir daily. The patient felt significantly better to the point of discharge. The patient was no longer needing her oxygen. She completed her course of treatment and she is able to be discharged home with no change in her medication. Follow up in 1 to 2 weeks with me as well as with Dr. Lala. Please see hospital chart for full details. MD DANG Bateman/VIJAY /[id number]
== END 2019-12-15 18:54 | disposition home or self-care (01) | DRG 177 ==
LOC: ER 03:55 → ERHOLD 05:15 → MED/SURG3 05:47 → OBSVTOIN 12-11 09:06 → IMCU 12-12 07:49
PROVIDERS: ADMIT Internal Medicine; ATTEND Internal Medicine
PROC: XW033E5 Introduction of Remdesivir Anti-infective into Peripheral Vein, Percutaneous Approach, New Technology Group 5 (ICD-10-PCS; principal; 2019-12-10)
DX: U07.1 COVID-19 (principal); J12.89 Other viral pneumonia; J15.9 Unspecified bacterial pneumonia; J96.01 Acute respiratory failure with hypoxia; E87.2 Acidosis; K21.9 Gastro-esophageal reflux disease without esophagitis; E86.0 Dehydration; K52.9 Noninfective gastroenteritis and colitis, unspecified; N63.0 Unspecified lump in unspecified breast; E87.6 Hypokalemia; I10 Essential (primary) hypertension; Z87.442 Personal history of urinary calculi; Z87.898 Personal history of other specified conditions; Z88.8 Allergy status to other drugs, medicaments and biological substances; G93.2 Benign intracranial hypertension
CPT/HCPCS: 36415; 71045; 71260; 80053; 82550; 82553; 83735; 84484; 85025; 93005; 93306; 99284; G0378; J0456; J0696; J1100; J1650; J1885; J2405; J7030; J7050; Q9967; U0002

== ENCOUNTER → 2019-12-26 | Outpatient (CLI) | payer BC | LOC: MAMMO 10:21 | PROVIDERS: ATTEND Family Medicine | DX: Z12.31 Encounter for screening mammogram for malignant neoplasm of breast (principal) | CPT/HCPCS: 77067 ==

== ENCOUNTER → 2020-03-25 | Outpatient (CLI) | payer OTHER ==
[~2020-03-25] MED LIST changes: +COVID-19 VACC, MRNA(MODERNA)/PF 100 MCG/0.5 ML VIAL IM ONE
== END ==
LOC: VACCPMC 12:05
DX: Z23 Encounter for immunization (principal); Z20.828 Contact with and (suspected) exposure to other viral communicable diseases

== ENCOUNTER → 2020-05-03 | Outpatient (CLI) | payer OTHER | END | DRG 951 | LOC: VACCPMC 07:35 | DX: Z23 Encounter for immunization (principal); Z20.822 Contact with and (suspected) exposure to COVID-19 | CPT/HCPCS: 0012A; 91301 ==

== ENCOUNTER → 2020-09-20 | Outpatient (CLI) | payer OTHER ==
[~2020-09-20] MED LIST changes: -COVID-19 VACC, MRNA(MODERNA)/PF 100 MCG/0.5 ML VIAL IM ONE; +REGADENOSON 0.4 MG/5 ML SYR IV ONE
== END ==
LOC: NM 07:05
PROVIDERS: ATTEND Internal Medicine Cardiovascular Disease
DX: R07.9 Chest pain, unspecified (principal); R00.2 Palpitations; R06.02 Shortness of breath
CPT/HCPCS: 78452; 93017; 93306; A9502; J2785

== ENCOUNTER → 2020-11-26 | Outpatient (CLI) | payer OTHER ==
[~2020-11-26] MED LIST changes: -REGADENOSON 0.4 MG/5 ML SYR IV ONE
== END ==
LOC: MAMMO 10:21
PROVIDERS: ATTEND Obstetrics & Gynecology
DX: Z12.31 Encounter for screening mammogram for malignant neoplasm of breast (principal)
CPT/HCPCS: 77067

== ENCOUNTER 2021-02-05 07:10 | Emergency (ER) | payer OTHER ==
[~2021-02-05] VITALS: Ht 167.6 cm; Wt 85.7 kg
[2021-02-05] MEDS ORDERED: SODIUM CHLORIDE 0.9% 1000ML 1,000 ML IV STA (07:25)
[2021-02-05 07:43] LABS: BASOPHILS # (AUTO) 0.1 (0.0-0.1); BASOPHILS % 0.5 % (0.0-1.0); EOSINOPHILS # (AUTO) 0.1 (0.0-0.4); HEMATOCRIT 45.8 % (34.2-44.1); HEMOGLOBIN 15.4 g/dL (12.0-16.0); LYMPHOCYTES % 18.9 % (18.0-39.1); MEAN CORPUSCULAR HEMOGLOBIN 30.6 pg (28-32); MEAN CORPUSCULAR HGB CONC 33.6 g/dL (31-35); MEAN CORPUSCULAR VOLUME 90.9 fL (81-99); MONOCYTES # (AUTO) 0.7 (0.2-0.8); MONOCYTES % 6.2 % (4.4-11.3); NEUTROPHILS # (AUTO) 7.7 (2.1-6.9); NEUTROPHILS % 73.2 % (38.7-80.0); PLATELET COUNT 253 x10e3/uL (140-360); RED BLOOD COUNT 5.04 x10e6/uL (3.6-5.1); RED CELL DISTRIBUTION WIDTH 12.4 % (11.7-14.4)
[2021-02-05] MEDS ORDERED: KETOROLAC TROMETHAMINE 30 MG/ML VIAL IV ONE (08:00)
[2021-02-05] MEDS ORDERED: ONDANSETRON HCL INJ 2MG/ML 2ML 2 MG/ML VIAL IV ONE (08:00)
[2021-02-05 08:21] LABS: ALANINE AMINOTRANSFERASE 26 IU/L (0-55); ALBUMIN 4.3 g/dL (3.5-5.0); ALBUMIN/GLOBULIN RATIO 1.4 (0.8-2.0); ALKALINE PHOSPHATASE 71 IU/L (40-150); ANION GAP 12.9 mmol/L (8-16); BLOOD UREA NITROGEN 17 mg/dL (7-26); BUN/CREATININE RATIO 20 (6-25); CALCIUM 9.5 mg/dL (8.4-10.2); CARBON DIOXIDE 25 mmol/L (22-29); CHLORIDE 105 mmol/L (98-107); CREATININE, SERUM 0.85 mg/dL (0.57-1.11); EST GLOMERULAR FILTRATION RATE 70 ML/MIN (60-); GLUCOSE 111 mg/dL (74-118); LIPASE 18 U/L (8-78); MAGNESIUM 2.1 MG/DL (1.3-2.1); POTASSIUM 3.9 mmol/L (3.5-5.1); SODIUM 139 mmol/L (136-145)
[2021-02-05] MEDS ORDERED: IOPAMIDOL 370 MG/ML 200 ML INFUS..BTL INJ ONE (08:49)
[2021-02-05] MEDS ORDERED: SODIUM CHLORIDE 0.9% 50ML 50 ML ONE (08:49)
[2021-02-05 08:50] LABS: CLARITY,URINE CLEAR (CLEAR); COLOR,URINE YELLOW (YELLOW); LEUKOCYTE ESTERASE ,URINE NEGATIVE (NEGATIVE); NITRITE,URINE NEGATIVE (NEGATIVE); PROTEIN,URINE DIPSTICK NEGATIVE (NEGATIVE)
[2021-02-05 08:51] LABS: KETONES,URINE NEGATIVE (NEGATIVE); URINE UROBILINOGEN 0.2 mg/dL (0.2 - 1)
[2021-02-05 09:28] LABS: BACTERIA,URINE FEW /HPF; EPITHELIAL CELLS,URINE RARE /LPF; RBC,URINE 0-5 /HPF (0-5)
[2021-02-05 10:13] VITALS: BP 136/88
== END 2021-02-05 10:29 | disposition home or self-care (01) ==
LOC: ER 07:20
DX: R10.32 Left lower quadrant pain (principal); K57.32 Diverticulitis of large intestine without perforation or abscess without bleeding; I10 Essential (primary) hypertension; K21.9 Gastro-esophageal reflux disease without esophagitis
CPT/HCPCS: 36415; 74177; 80053; 81001; 83690; 83735; 84702; 85025; 99284; J1885; J2405; J7030; Q9967

== ENCOUNTER → 2021-07-31 | Day surgery (SDC) | payer BC, OTHER ==
[~2021-07-31] MED LIST changes: +FENTANYL CITRATE/PF 100MCG/2 ML INJ ONE; +HYOSCYAMINE SULFATE 0.5 MG/ML INJ ONE; +LIDOCAINE HCL 2% LOCAL INJ 5 ML SDV VIAL INJ ONE; +MIDAZOLAM HCL 2 MG/2 ML VIAL ONE; +ONDANSETRON HCL INJ 2MG/ML 2ML 2 MG/ML VIAL ONE; +PROPOFOL IV EMULSION 10 MG/ML 20 ML VIAL ONE
[2021-07-31 13:05] VITALS: BP 118/86
== END | disposition home or self-care (01) ==
LOC: OR 06:27
PROVIDERS: ATTEND Internal Medicine Gastroenterology
DX: Z09 Encounter for follow-up examination after completed treatment for conditions other than malignant neoplasm (principal); Z86.010 Personal history of colon polyps; K57.30 Diverticulosis of large intestine without perforation or abscess without bleeding; K64.8 Other hemorrhoids; Z71.3 Dietary counseling and surveillance; I10 Essential (primary) hypertension; Z88.8 Allergy status to other drugs, medicaments and biological substances; Z01.810 Encounter for preprocedural cardiovascular examination; Z01.812 Encounter for preprocedural laboratory examination; Z20.822 Contact with and (suspected) exposure to COVID-19; Z79.899 Other long term (current) drug therapy; Z68.31 Body mass index [BMI] 31.0-31.9, adult
CPT/HCPCS: 36415; 45380; 76856; 84702; 93005; J1980; J2001; J2250; J2405; J2704; J3010; U0002; 45378

== ENCOUNTER → 2021-08-14 | Outpatient (CLI) | payer BC, OTHER ==
[~2021-08-14] MED LIST changes: -FENTANYL CITRATE/PF 100MCG/2 ML INJ ONE; +GADOBENATE DIMEGLUMINE 1 ML IV ONE; -HYOSCYAMINE SULFATE 0.5 MG/ML INJ ONE; -LIDOCAINE HCL 2% LOCAL INJ 5 ML SDV VIAL INJ ONE; -MIDAZOLAM HCL 2 MG/2 ML VIAL ONE; -ONDANSETRON HCL INJ 2MG/ML 2ML 2 MG/ML VIAL ONE; -PROPOFOL IV EMULSION 10 MG/ML 20 ML VIAL ONE
[2021-08-14 08:33] LABS: CREATININE, SERUM 0.8 mg/dL (0.57-1.11)
== END ==
LOC: MRI 06:59
PROVIDERS: ATTEND Internal Medicine
DX: R79.89 Other specified abnormal findings of blood chemistry (principal)
CPT/HCPCS: 36415; 70553; 82565; 84520; A9577

== ENCOUNTER 2023-02-19 08:57 | Outpatient (RCR) | payer BC ==
[~2023-02-19 08:57] MED LIST changes: -GADOBENATE DIMEGLUMINE 1 ML IV ONE
== END 2023-02-25 ==
LOC: PT 08:57
PROVIDERS: ATTEND Orthopaedic Surgery
DX: M70.61 Trochanteric bursitis, right hip (principal); M70.62 Trochanteric bursitis, left hip; M76.01 Gluteal tendinitis, right hip; M76.02 Gluteal tendinitis, left hip